=== PATIENT | male | born 1960 | race American Indian/Alaskan Native ===

== ENCOUNTER 2017-08-17 22:35 | Emergency (ER) | payer SELFPAY ==
--- NOTE | 2017-08-18 02:04 | XRay Report ---
FINAL REPORT EXAM: XR HAND 2V LT HISTORY: left hand pain TECHNIQUE: AP and lateral views of the left hand PRIORS: None. FINDINGS: There is no evidence for acute fracture or dislocation. No soft tissue swelling or radiopaque foreign bodies are seen. Bony mineralization is normal and joint spaces are maintained. IMPRESSION: No acute bony or soft tissue abnormality noted.
--- NOTE | 2017-08-18 02:05 | XRay Report ---
FINAL REPORT EXAM: XR KNEE 1-2V RT HISTORY: Chronic right knee pain TECHNIQUE: AP and lateral views of the right knee PRIORS: None. FINDINGS: No acute fracture or dislocation is seen. The soft tissues are unremarkable with no evidence for suprapatellar joint effusion. Joint spaces are maintained and bony mineralization is normal. IMPRESSION: Negative views of the right knee.
[2017-08-18] MEDS ORDERED: MOTRIN PO ONE (02:06)
--- NOTE | 2017-08-18 02:33 | Emergency Department Report ---
ED Lower Extremity HPI - General Chief Complaint: Extremity Injury, Upper Stated Complaint: RT KNEE PAIN Time Seen by Provider: 08/18/17 02:06 Source: patient Mode of arrival: Stretcher Limitations: Physical Limitation - History of Present Illness Initial Comments: This is a 56-year-old male nontoxic, well nourished in appearance, no acute signs of distress presents to the ED with c/o of acute on chronic knee pain 20 years. Patient denies any new trauma. Patient stated the knee has been "locking up" intermittently. Patient denies any joint swelling, joint redness, fever, chills, nausea, vomiting, headache, stiff neck, back pain, abdominal pain , chest pain or shortness of breath. Patient denies any allergies or significant past medical history. MD Complaint: knee injury -: year(s) Injury: Knee: Left Severity: mild Severity scale (0 -10): 3 Improves With: immobilization Worsens With: movement Associated Symptoms: ambulatory. denies: snap/pop sensation, swelling, numbness , tingling, unable to bear weight, able to partially bear weight - Related Data Previous Rx's Medication Instructions Recorded Last Taken Type Ibuprofen [Motrin] 600 mg PO Q8H PRN #30 tablet 08/18/17 Unknown Rx Allergies Allergy/AdvReac Type Severity Reaction Status Date / Time No Known Allergies Allergy Unverified 08/17/17 23:53 ED Review of Systems ROS: Stated complaint: RT KNEE PAIN Other details as noted in HPI Constitutional: denies: chills, fever Eyes: denies: eye pain, eye discharge, vision change ENT: denies: ear pain, throat pain Respiratory: denies: cough, shortness of breath, wheezing Cardiovascular: denies: chest pain, palpitations Endocrine: no symptoms reported Gastrointestinal: denies: abdominal pain, nausea, diarrhea Genitourinary: denies: urgency, dysuria Musculoskeletal: denies: back pain, joint swelling, arthralgia Skin: denies: rash, lesions Neurological: denies: headache, weakness, paresthesias Psychiatric: denies: anxiety, depression Hematological/Lymphatic: denies: easy bleeding, easy bruising ED Past Medical Hx - Past Medical History Hx Arthritis: Yes Additional medical history: Chronic Right Knee Pain - Social History Smoking Status: Current Every Day Smoker Substance Use Type: Alcohol - Medications Home Medications: Home Medications Medication Instructions Recorded Confirmed Last Taken Type Ibuprofen [Motrin] 600 mg PO Q8H PRN #30 tablet 08/18/17 Unknown Rx ED Physical Exam - General Limitations: Physical Limitation General appearance: alert, in no apparent distress - Head Head exam: Present: atraumatic, normocephalic - Eye Eye exam: Present: normal appearance Pupils: Present: normal accommodation - ENT ENT exam: Present: normal exam, mucous membranes moist - Neck Neck exam: Present: normal inspection, full ROM - Respiratory Respiratory exam: Present: normal lung sounds bilaterally. Absent: respiratory distress, wheezes, rales, rhonchi, stridor - Cardiovascular Cardiovascular Exam: Present: regular rate, normal rhythm, normal heart sounds. Absent: irregular rhythm, systolic murmur, diastolic murmur, rubs, gallop - GI/Abdominal GI/Abdominal exam: Present: soft, normal bowel sounds - Rectal Rectal exam: Present: deferred - Extremities Exam Extremities exam: Present: normal inspection, full ROM, normal capillary refill. Absent: tenderness, pedal edema, joint swelling, calf tenderness - Expanded Lower Extremity Exam Left Hip exam: Present: normal inspection, full ROM Upper Leg exam: Present: normal inspection, full ROM Knee exam: Present: normal inspection, full ROM, full knee extension. Absent: tenderness, swelling, abrasion, laceration, ecchymosis, deformity, crepidus, dislocation, erythema, effusion, pain w/ pronation/supination, posterior draw sign, pain/laxity with valgus, pain/laxity with varus Lower Leg exam: Present: normal inspection, full ROM. Absent: tenderness, swelling, abrasion, laceration, ecchymosis, deformity, crepidus, dislocation, erythema, palpable cord, Jose's sign Ankle exam: Present: normal inspection, full ROM Foot/Toe exam: Present: normal inspection, full ROM Neuro vascular tendon exam: Present: no vascular compromise. Absent: pulse deficit, abnormal cap refill, motor deficit, sensory deficit, tendon deficit, extremity cold to touch, pallor, abnormal 2-point discrimination, decreased fine /light touch, foot drop, peroneal nerve deficit, significant pain with passive ROM of distal joint Gait: Positive: observed and normal - Back Exam Back exam: Present: normal inspection, full ROM - Neurological Exam Neurological exam: Present: alert, oriented X3, normal gait - Psychiatric Psychiatric exam: Present: normal affect, normal mood - Skin Skin exam: Present: warm, dry, intact, normal color. Absent: rash ED Course Vital Signs 08/17/17 23:44 Temperature 97.6 F Pulse Rate 93 H Respiratory 18 Rate Blood Pressure 135/86 O2 Sat by Pulse 98 Oximetry - Reevaluation(s) Reevaluation #1: 08/18/17 02:31 Patient is speaking in full sentences with no signs of distress noted. ED Lower Extremity MDM - Medical Decision Making this is a 56-year-old male that presents with chronic knee pain. Patient was examined by me. X-ray obtained and dictated by the radiologist within normal limits. Patient received Motrin in the ED. Patient was referred to orthopedic doctor for possible MRI. At time of discharge, the patient does not seem toxic or ill in appearance. No acute signs of distress noted. Patient agrees to discharge treatment plan of care. No further questions noted by the patient. Critical care attestation.: If time is entered above; I have spent that time in minutes in the direct care of this critically ill patient, excluding procedure time. ED Disposition Clinical Impression: Chronic knee pain Qualifiers: Laterality: right Qualified Code(s): M25.561 - Pain in right knee; G89.29 - Other chronic pain Disposition: DC-01 TO HOME OR SELFCARE Is pt being admited?: No Does the pt Need Aspirin: No Condition: Stable Instructions: Knee Pain (ED) Additional Instructions: Follow-up with a orthopedic doctor in 3-5 days or if symptoms worsen and continue return to emergency room as soon as possible. Prescriptions: Ibuprofen [Motrin] 600 mg PO Q8H PRN #30 tablet PRN Reason: Pain Referrals: JINA EARL MD [Primary Care Provider] - 3-5 Days JOSE RAUL FELIZ MD [Staff Physician] - 3-5 Days [facility] [Outside] - 3-5 Days [facility] [Outside] - 3-5 Days
[2017-08-18 02:44] VITALS: BP 136/84
== END 2017-08-18 02:46 | disposition home or self-care (01) ==
LOC: ED 22:35
DX: M25.561 Pain in right knee (principal); M79.642 Pain in left hand; G89.29 Other chronic pain; F17.200 Nicotine dependence, unspecified, uncomplicated
CPT/HCPCS: 99283

== ENCOUNTER 2018-06-30 00:41 | Emergency (ER) | payer SELFPAY ==
[2018-06-30] MEDS ORDERED: PROVENTIL IH ONE (00:55)
[2018-06-30] MEDS ORDERED: ATROVENT IH ONE (00:55)
--- NOTE | 2018-06-30 00:55 | Emergency Department Report ---
ED General Adult HPI - General Chief complaint: Medical Clearance Stated complaint: CONGESTION Time Seen by Provider: 06/30/18 00:52 Source: patient, EMS (verbal report received from EMS.), RN notes reviewed Mode of arrival: Stretcher Limitations: Other (intoxication. The patient is a poor historian.) - History of Present Illness Initial comments: This is a 57-year-old gentleman who is brought to the hospital by EMS. As per verbal report from EMS, patient was at a gas station, and somebody called 911. Not certain why EMS services were activated. The patient endorses nasal congestion and cough. He denied alcohol consumption. He denied physical pain. He is asking to sleep and to be left alone. He denied headache, neck pain, chest pain, abdominal pain, homicidality, suicidality. -: Sudden Improves with: none Worsens with: none Associated Symptoms: cough, malaise - Related Data Previous Rx's Medication Instructions Recorded Last Taken Type Ibuprofen [Motrin] 600 mg PO Q8H PRN #30 tablet 08/18/17 Unknown Rx Albuterol Sulfate [Proair 90 mcg IH Q4HR PRN #2 aer.[email or web address] 06/30/18 Unknown Rx Respiclick] Fluticasone [Flonase] 1 spray NS QDAY #1 bottle 06/30/18 Unknown Rx Folic Acid [Folvite] 1 mg PO QDAY #30 tablet 06/30/18 Unknown Rx Oxymetazoline 0.05% [Afrin] 1 spray NS BID PRN #1 bottle 06/30/18 Unknown Rx RX: Multivitamin [Multiple 1 each PO QDAY #30 tablet 06/30/18 Unknown Rx Vitamins] Allergies Allergy/AdvReac Type Severity Reaction Status Date / Time No Known Allergies Allergy Unverified 08/17/17 23:53 ED Review of Systems ROS: Stated complaint: CONGESTION Other details as noted in HPI Comment: Unobtainable due to pts medical conditions Respiratory: cough, wheezing Cardiovascular: denies: chest pain Gastrointestinal: denies: abdominal pain Psychiatric: denies: homicidal thoughts, suicidal thoughts ED Past Medical Hx - Past Medical History Hx Arthritis: Yes Additional medical history: Chronic Right Knee Pain - Social History Smoking Status: Current Every Day Smoker Substance Use Type: Alcohol - Medications Home Medications: Home Medications Medication Instructions Recorded Confirmed Last Taken Type Ibuprofen [Motrin] 600 mg PO Q8H PRN #30 tablet 08/18/17 Unknown Rx Albuterol Sulfate [Proair 90 mcg IH Q4HR PRN #2 aer.[email or web address] 06/30/18 Unknown Rx Respiclick] Fluticasone [Flonase] 1 spray NS QDAY #1 bottle 06/30/18 Unknown Rx Folic Acid [Folvite] 1 mg PO QDAY #30 tablet 06/30/18 Unknown Rx Oxymetazoline 0.05% [Afrin] 1 spray NS BID PRN #1 bottle 06/30/18 Unknown Rx RX: Multivitamin [Multiple 1 each PO QDAY #30 tablet 06/30/18 Unknown Rx Vitamins] ED Physical Exam - General Limitations: Other (alcohol intoxication) General appearance: appears intoxicated - Head Head exam: Present: atraumatic, normocephalic - Eye Eye exam: Present: normal appearance, PERRL, EOMI - ENT ENT exam: Present: normal orophraynx, mucous membranes dry, normal external ear exam, other (patient has scant bleeding from the bilateral nostrils. No obvious arterial bleeding is noted.) - Neck Neck exam: Present: normal inspection, full ROM. Absent: tenderness, meningismus - Respiratory Respiratory exam: Present: wheezes. Absent: respiratory distress - Cardiovascular Cardiovascular Exam: Present: normal rhythm, tachycardia, normal heart sounds. Absent: systolic murmur, diastolic murmur, rubs, gallop - GI/Abdominal GI/Abdominal exam: Present: soft. Absent: distended, tenderness, guarding, rebound, rigid, pulsatile mass - Rectal Rectal exam: Present: deferred - Extremities Exam Extremities exam: Present: normal inspection, full ROM, other (2+ pulses noted in the bilateral upper, lower extremities. Compartments soft. No long bony tenderness. The pelvis is stable.). Absent: pedal edema, joint swelling, calf tenderness - Back Exam Back exam: Present: normal inspection, full ROM. Absent: tenderness, CVA tenderness (R), paraspinal tenderness, vertebral tenderness - Neurological Exam Neurological exam: Present: alert, other (Extraocular movements intact. Tongue midline. No facial droop. Facial sensation intact to light touch in the V1, V2, V3 distribution bilaterally. 5 and 5 strength in 4 extremities.. Sensation is intact to light touch in 4 extremities.). Absent: motor sensory deficit - Psychiatric Psychiatric exam: Present: normal affect, normal mood - Skin Skin exam: Present: warm, dry, intact, normal color. Absent: rash ED Course Vital Signs 06/30/18 06/30/18 06/30/18 01:19 01:40 02:00 Temperature 97.9 F Pulse Rate 107 H 111 H Pulse Rate [ 80 Right Lower Lobe] Respiratory 22 21 Rate Respiratory 18 Rate [Right Lower Lobe] Blood Pressure 120/85 133/79 Blood Pressure 120/85 [Left] O2 Sat by Pulse 96 93 Oximetry 06/30/18 06/30/18 06/30/18 04:00 05:00 06:00 Temperature Pulse Rate 110 H 129 H 114 H Pulse Rate [ Right Lower Lobe] Respiratory 25 H 22 22 Rate Respiratory Rate [Right Lower Lobe] Blood Pressure 135/78 135/78 137/75 Blood Pressure [Left] O2 Sat by Pulse 98 98 95 Oximetry 06/30/18 06/30/18 06/30/18 07:00 08:00 09:00 Temperature Pulse Rate 118 H Pulse Rate [ Right Lower Lobe] Respiratory 32 H Rate Respiratory Rate [Right Lower Lobe] Blood Pressure 143/75 129/72 129/79 Blood Pressure [Left] O2 Sat by Pulse 95 94 96 Oximetry - Reevaluation(s) Reevaluation #1: 06/30/18 05:34 Differential diagnosis, including but not limited to: Bronchitis, bronchiectasis, malnutrition, dehydration, resolving nasal bleeding, alcohol dependence, intracranial injury, cervical spine injury Assessment and plan: 57-year-old gentleman with some wheezing, also clinically intoxicated. Initial laboratory studies suggest hypoglycemia, hyponatremia, and alcohol intoxication. The patient is still intoxicated, his hypoglycemia is still persistent, and the patient has improved sodium. He will be given additional dextrose, he will be given additional D5 half- normal, he was given a banana bag, and we will await clinical sobriety. Multiple attempts were made to encourage the patient to eat. Thus far he is declining to eat. He is placed on repetitive Accu-Cheks, and 2 x 2 pledgets were inserted into the bilateral nostrils, with application of lidocaine with epinephrine, then application of the external tongue depressors, with good hemostasis. Once the patient s sober, he should be able to eat in the emergency room, and maintain an appropriate glucose level, and be discharged. Care will be transferred to the oncoming ER physician, Dr. Trinity Nicole, to reassess for clinical sobriety and glycemic monitoring. 07/02/18 20:28 Reevaluation #2: 06/30/18 05:46 Wheezing has resolved. Still somewhat tachycardic, likely secondary to albuterol. Resting comfortably, and in no acute distress. - Procedure Description Procedures done: Soaked 2 2 x 2 pledgets with lidocaine with epinephrine. Inserted 1 pledgets into each nostril. Then applied external tongue depressor device. The patient tolerated this well. ED Medical Decision Making - Lab Data Result diagrams: 06/30/18 01:33 06/30/18 04:28 Critical care attestation.: If time is entered above; I have spent that time in minutes in the direct care of this critically ill patient, excluding procedure time. ED Disposition Clinical Impression: Reactive airway disease, Nasal bleeding, Malnutrition, Alcohol intoxication Disposition: DC-01 TO HOME OR SELFCARE Is pt being admited?: No Does the pt Need Aspirin: No Condition: Stable Instructions: Acute Bronchitis (ED), Abuse of Alcohol (ED) Additional Instructions: Discontinue, avoid consumption of alcohol. Take the medications as needed/d irected. Follow up with the primary care doctor within the next month. Return to the emergency room right away with new, worsening or different symptoms. Prescriptions: Albuterol Sulfate [Proair Respiclick] 90 mcg IH Q4HR PRN #2 aer.[email or web address] PRN Reason: Wheezing Fluticasone [Flonase] 1 spray NS QDAY #1 bottle Folic Acid [Folvite] 1 mg PO QDAY #30 tablet RX: Multivitamin [Multiple Vitamins] 1 each PO QDAY #30 tablet Oxymetazoline 0.05% [Afrin] 1 spray NS BID PRN #1 bottle PRN Reason: Congestion Referrals: [facility] [Provider Group] - as needed
--- NOTE | 2018-06-30 01:19 | XRay Report ---
FINAL REPORT PROCEDURE: XR CHEST 1V AP TECHNIQUE: Chest radiograph anteroposterior view. CPT 27484 HISTORY: cough wheezing COMPARISON: No prior studies are available for comparison. FINDINGS: Heart: Normal. Mediastinum/Vessels: Normal. Lungs/Pleural space: Normal. Bony thorax: No acute osseous abnormality. Life support devices: None. IMPRESSION: No acute cardiopulmonary abnormality.
[2018-06-30] MEDS ORDERED: FOLVITE 1 MG, INFUVITE 10 ML in NACL 0.9% 1000 ML 1,000 ML IV ONE (01:20)
[2018-06-30 01:49] LABS: Hemoglobin 14.1 gm/dl (11.8-15.2); Mean Corpuscular HGB Conc 34 % (32-34); Mean Corpuscular Volume 84 fl (84-94); Red Blood Count 4.89 M/mm3 (3.65-5.03); Red Cell Distribution Width 18.6 % (13.2-15.2)
[2018-06-30 01:54] LABS: Platelet Count 128 K/mm3 (140-440)
[2018-06-30 02:13] LABS: BUN/Creatinine Ratio 7; Blood Urea Nitrogen 5 mg/dL (9-20); Calcium 8.6 mg/dL (8.4-10.2); Hemolysis Index 4
[2018-06-30] MEDS ORDERED: NACL 0.9% 1000 ML 1,000 ML IV ONE ×2 (02:46→05:41)
[2018-06-30] MEDS ORDERED: D50W (25GM) Syringe IV ONE ×3 (02:47→05:35)
--- NOTE | 2018-06-30 03:24 | Cat Scan Report ---
FINAL REPORT PROCEDURE: CT HEAD/BRAIN WO CON TECHNIQUE: Computerized tomography of the head was performed without contrast material. HISTORY: etoh ? trauma COMPARISON: No prior studies are available for comparison. FINDINGS: Skull and scalp: Normal. Paranasal sinuses: Normal. Ventricles and subarachnoid spaces: Normal. Cerebrum: No evidence of hemorrhage, acute infarction or mass. Slight atrophy and slight periventricu lar deep white matter change.. Cerebellum and brainstem: No evidence of hemorrhage, acute infarction or mass. Vasculature: Normal. Comments: None. IMPRESSION: There is no evidence of an acute intracranial process. There is atrophy and slight periventricular de ep white matter change
--- NOTE | 2018-06-30 03:25 | Cat Scan Report ---
FINAL REPORT PROCEDURE: CT CERVICAL SPINE WO CON TECHNIQUE: Computerized tomography of the cervical spine was performed from the skull base to T1 wit hout contrast material. HISTORY: etoh ? trauma COMPARISON: No prior studies are available for comparison. FINDINGS: C1-2: No significant abnormality. C2-3: No significant abnormality. C3-4: No significant abnormality. C4-5: No significant abnormality. C5-6: No significant abnormality. C6-7: No significant abnormality. C7-T1: No significant abnormality. Other: No evidence of an acute fracture. The alignment is normal. The spinal canal is adequate at all levels.. IMPRESSION: There is no evidence of acute fracture or dislocation..
[2018-06-30 04:58] LABS: BUN/Creatinine Ratio 6; Blood Urea Nitrogen 4 mg/dL (9-20); Hemolysis Index 66
[2018-06-30] MEDS ORDERED: D50W (25GM) Vial IV ONE (05:09)
[2018-06-30] MEDS ORDERED: XYLOCAINE 2%/ EPI 1:200,000 INFILTRATI ONE (05:27)
[2018-06-30] MEDS ORDERED: XYLOCAINE 2%/EPI 1:100,000 INFILTRATI ONE (05:31)
[2018-06-30] MEDS ORDERED: D5/0.45NS 1,000 ML IV ONE (06:00)
[2018-06-30 09:28] VITALS: BP 129/79
[2018-06-30] MEDS ORDERED: ZOFRAN ONE (10:17)
[2018-06-30] MEDS ORDERED: ZOFRAN IV ONE (10:18)
== END 2018-06-30 12:02 | disposition home or self-care (01) ==
LOC: ED 00:41
DX: J45.909 Unspecified asthma, uncomplicated (principal); R04.0 Epistaxis; F10.120 Alcohol abuse with intoxication, uncomplicated; M25.561 Pain in right knee; G89.29 Other chronic pain; F17.200 Nicotine dependence, unspecified, uncomplicated
CPT/HCPCS: 36415; 70450; 71045; 72125; 80048; 82550; 82962; 83735; 85027; 94640; 96365; 96366; 96375; 96376; 99285; G0480; J2405; J3411; J7030; 80320

== ENCOUNTER 2018-10-20 18:16 | Inpatient (IN) | payer OTHER ==
[2018-10-20] MEDS ORDERED: ATIVAN IV ONE (18:41)
[2018-10-20] MEDS ORDERED: D50W (25GM) Syringe IV ONE ×2 (18:42→20:00)
[2018-10-20] MEDS ORDERED: D50W (25GM) Vial IV ONE (18:43)
--- NOTE | 2018-10-20 19:00 | Emergency Department Report ---
ED Alcohol HPI - General Chief Complaint: Weakness Stated Complaint: GENERAL WEAKNESS Time Seen by Provider: 10/20/18 18:35 Source: patient Mode of arrival: Ambulatory Limitations: No Limitations - History of Present Illness Initial Comments: 57-year-old male with alcohol abuse and arthritis presents to the hospital with generalized shaking. Patient states his mother called EMS due to his uncontrollable shakes. Patient states he shakes or the time. He drinks alcohol almost daily and did have some beer earlier today. He also has chronic intermittent nausea vomiting and epigastric pain. He denies emesis, melena, hematochezia, or fever. He has chronic intermittent diarrhea. He denies any pain currently. Patient denies history of seizures. - Related Data Previous Rx's Medication Instructions Recorded Last Taken Type Ibuprofen [Motrin] 600 mg PO Q8H PRN #30 tablet 08/18/17 Unknown Rx Albuterol Sulfate [Proair 90 mcg IH Q4HR PRN #2 aer.pow.ba 06/30/18 Unknown Rx Respiclick] Fluticasone [Flonase] 1 spray NS QDAY #1 bottle 06/30/18 Unknown Rx Folic Acid [Folvite] 1 mg PO QDAY #30 tablet 06/30/18 Unknown Rx Multivitamin [Multiple Vitamins] 1 each PO QDAY #30 tablet 06/30/18 Unknown Rx Oxymetazoline 0.05% [Afrin] 1 spray NS BID PRN #1 bottle 06/30/18 Unknown Rx Allergies Allergy/AdvReac Type Severity Reaction Status Date / Time No Known Allergies Allergy Verified 10/20/18 18:26 ED Review of Systems ROS: Stated complaint: GENERAL WEAKNESS Other details as noted in HPI Comment: All other systems reviewed and negative ED Past Medical Hx - Past Medical History Previous Medical History?: Yes Hx Arthritis: Yes Additional medical history: Chronic Right Knee Pain - Surgical History Past Surgical History?: No - Social History Smoking Status: Current Every Day Smoker Substance Use Type: Alcohol - Medications Home Medications: Home Medications Medication Instructions Recorded Confirmed Last Taken Type Ibuprofen [Motrin] 600 mg PO Q8H PRN #30 tablet 08/18/17 Unknown Rx Albuterol Sulfate [Proair 90 mcg IH Q4HR PRN #2 aer.pow.ba 06/30/18 Unknown Rx Respiclick] Fluticasone [Flonase] 1 spray NS QDAY #1 bottle 06/30/18 Unknown Rx Folic Acid [Folvite] 1 mg PO QDAY #30 tablet 06/30/18 Unknown Rx Multivitamin [Multiple Vitamins] 1 each PO QDAY #30 tablet 06/30/18 Unknown Rx Oxymetazoline 0.05% [Afrin] 1 spray NS BID PRN #1 bottle 06/30/18 Unknown Rx ED Physical Exam - General Limitations: No Limitations - Other Other exam information: General: No limitations, patient is alert in no acute distress Head exam: Atraumatic Eyes exam: Normal appearance, anicteric sclerae ENT: Moist mucous membrane Neck exam: Normal inspection, full range of motion, no meningismus nontender Respiratory exam: Clear to auscultation bilateral, no wheezes, rales, crackles Cardiovascular: Mild tachycardia regular rhythm Abdomen: Soft, nondistended, and mild epigastric tenderness, with normal bowel sounds, no rebound, or guarding Extremity: Full range of motion normal inspection no deformity Back: Normal Inspection, full range of motion, no tenderness Neurologic: Alert, oriented x3, cranial nerves intact, no motor or sensory deficit. Resting tremor noted Psychiatric: normal affect, normal mood Skin: Warm, dry, intact ED Course Vital Signs 10/20/18 10/20/18 10/20/18 19:39 20:21 21:25 Temperature 99.2 F Pulse Rate 105 H 100 H 110 H Respiratory 17 16 15 Rate Blood Pressure 145/94 140/84 136/84 [Left] O2 Sat by Pulse 100 99 100 Oximetry ED Medical Decision Making - Lab Data Result diagrams: 10/20/18 18:45 10/20/18 18:45 Lab Results 10/20/18 10/20/18 10/20/18 Range/Units 18:38 18:40 18:45 WBC 6.6 (4.5-11.0) K/mm3 RBC 5.11 H (3.65-5.03) M/mm3 Hgb 15.3 H (11.8-15.2) gm/dl Hct 43.6 (35.5-45.6) % MCV 85 (84-94) fl MCH 30 (28-32) pg MCHC 35 H (32-34) % RDW 18.7 H (13.2-15.2) % Plt Count 141 (140-440) K/mm3 Add Manual Diff Complete Total Counted 100 Seg Neuts % (Manual) 83.0 H (40.0-70.0) % Band Neutrophils % 0 % Lymphocytes % (Manual) 11.0 L (13.4-35.0) % Reactive Lymphs % (Man) 0 % Monocytes % (Manual) 4.0 (0.0-7.3) % Eosinophils % (Manual) 0 (0.0-4.3) % Basophils % (Manual) 2.0 H (0.0-1.8) % Metamyelocytes % 0 % Myelocytes % 0 % Promyelocytes % 0 % Blast Cells % 0 % Nucleated RBC % Not Reportable Seg Neutrophils # Man 5.5 (1.8-7.7) K/mm3 Band Neutrophils # 0.0 K/mm3 Lymphocytes # (Manual) 0.7 L (1.2-5.4) K/mm3 Abs React Lymphs (Man) 0.0 K/mm3 Monocytes # (Manual) 0.3 (0.0-0.8) K/mm3 Eosinophils # (Manual) 0.0 (0.0-0.4) K/mm3 Basophils # (Manual) 0.1 (0.0-0.1) K/mm3 Metamyelocytes # 0.0 K/mm3 Myelocytes # 0.0 K/mm3 Promyelocytes # 0.0 K/mm3 Blast Cells # 0.0 K/mm3 WBC Morphology Not Reportable Hypersegmented Neuts Not Reportable Hyposegmented Neuts Not Reportable Hypogranular Neuts Not Reportable Smudge Cells Not Reportable Toxic Granulation Not Reportable Toxic Vacuolation Not Reportable Dohle Bodies Not Reportable Pelger-Huet Anomaly Not Reportable Desmond Rods Not Reportable Platelet Estimate Consistent w auto Clumped Platelets Not Reportable Plt Clumps, EDTA Not Reportable Large Platelets Few Giant Platelets Few Platelet Satelliting Not Reportable Plt Morphology Comment Not Reportable RBC Morphology Not Reportable Dimorphic RBCs Not Reportable Polychromasia Not Reportable Hypochromasia Not Reportable Poikilocytosis Few Anisocytosis 1+ Microcytosis Not Reportable Macrocytosis Not Reportable Spherocytes Not Reportable Pappenheimer Bodies Not Reportable Sickle Cells Not Reportable Target Cells 2+ Tear Drop Cells Not Reportable Ovalocytes Not Reportable Helmet Cells Not Reportable [place] Bodies Not Reportable [place] Rings Not Reportable [place] Cells Not Reportable Bite Cells Not Reportable Crenated Cell Not Reportable Elliptocytes Not Reportable Acanthocytes (Spur) Not Reportable Rouleaux Not Reportable Hemoglobin C Crystals Not Reportable Schistocytes Not Reportable Malaria parasites Not Reportable Vinny Bodies Not Reportable Hem Pathologist Commnt No Sodium (137-145) mmol/L Potassium (3.6-5.0) mmol/L Chloride (98-107) mmol/L Carbon Dioxide (22-30) mmol/L Anion Gap mmol/L BUN (9-20) mg/dL Creatinine (0.8-1.5) mg/dL Estimated GFR ml/min BUN/Creatinine Ratio % Glucose (75-100) mg/dL POC Glucose 60 L (70-105) Calcium (8.4-10.2) mg/dL Magnesium (1.7-2.3) mg/dL Total Bilirubin (0.1-1.2) mg/dL AST (5-40) units/L ALT (7-56) units/L Alkaline Phosphatase (35-129) units/L Total Protein (6.3-8.2) g/dL Albumin (3.9-5) g/dL Albumin/Globulin Ratio % Lipase 20 (13-60) units/L Urine Color (Yellow) Urine Turbidity (Clear) Urine pH (5.0-7.0) Ur Specific [place] (1.003-1.030) Urine Protein (Negative) mg/dL Urine Glucose (UA) (Negative) mg/dL Urine Ketones (Negative) mg/dL Urine Blood (Negative) Urine Nitrite (Negative) Urine Bilirubin (Negative) Urine Urobilinogen (<2.0) mg/dL Ur Leukocyte Esterase (Negative) Urine WBC (Auto) (0.0-6.0) /HPF Urine RBC (Auto) (0.0-6.0) /HPF U Epithel Cells (Auto) (0-13.0) /HPF Urine Mucus /HPF Urine Opiates Screen Urine Methadone Screen Ur Barbiturates Screen Ur Phencyclidine Scrn Ur Amphetamines Screen U Benzodiazepines Scrn Urine Cocaine Screen U Marijuana (THC) Screen Drugs of Abuse Note Plasma/Serum Alcohol (0-0.07) % 10/20/18 10/20/18 10/20/18 Range/Units 18:45 19:06 19:20 WBC (4.5-11.0) K/mm3 RBC (3.65-5.03) M/mm3 Hgb (11.8-15.2) gm/dl Hct (35.5-45.6) % MCV (84-94) fl MCH (28-32) pg MCHC (32-34) % RDW (13.2-15.2) % Plt Count (140-440) K/mm3 Add Manual Diff Total Counted Seg Neuts % (Manual) (40.0-70.0) % Band Neutrophils % % Lymphocytes % (Manual) (13.4-35.0) % Reactive Lymphs % (Man) % Monocytes % (Manual) (0.0-7.3) % Eosinophils % (Manual) (0.0-4.3) % Basophils % (Manual) (0.0-1.8) % Metamyelocytes % % Myelocytes % % Promyelocytes % % Blast Cells % % Nucleated RBC % Seg Neutrophils # Man (1.8-7.7) K/mm3 Band Neutrophils # K/mm3 Lymphocytes # (Manual) (1.2-5.4) K/mm3 Abs React Lymphs (Man) K/mm3 Monocytes # (Manual) (0.0-0.8) K/mm3 Eosinophils # (Manual) (0.0-0.4) K/mm3 Basophils # (Manual) (0.0-0.1) K/mm3 Metamyelocytes # K/mm3 Myelocytes # K/mm3 Promyelocytes # K/mm3 Blast Cells # K/mm3 WBC Morphology Hypersegmented Neuts Hyposegmented Neuts Hypogranular Neuts Smudge Cells Toxic Granulation Toxic Vacuolation Dohle Bodies Pelger-Huet Anomaly [place] Rods Platelet Estimate Clumped Platelets Plt Clumps, EDTA Large Platelets Giant Platelets Platelet Satelliting Plt Morphology Comment RBC Morphology Dimorphic RBCs Polychromasia Hypochromasia Poikilocytosis Anisocytosis Microcytosis Macrocytosis Spherocytes Pappenheimer Bodies Sickle Cells Target Cells Tear Drop Cells Ovalocytes Helmet Cells [place] Bodies [place] Rings [place] Cells Bite Cells Crenated Cell Elliptocytes Acanthocytes (Spur) Rouleaux Hemoglobin C Crystals Schistocytes Malaria parasites Vinny Bodies Hem Pathologist Commnt Sodium 134 L (137-145) mmol/L Potassium 5.0 (3.6-5.0) mmol/L Chloride 96.7 L (98-107) mmol/L Carbon Dioxide 22 (22-30) mmol/L Anion Gap 20 mmol/L BUN 5 L (9-20) mg/dL Creatinine 0.6 L (0.8-1.5) mg/dL Estimated GFR > 60 ml/min BUN/Creatinine Ratio 8 % Glucose 74 L (75-100) mg/dL POC Glucose 148 H (70-105) Calcium 8.8 (8.4-10.2) mg/dL Magnesium 1.90 (1.7-2.3) mg/dL Total Bilirubin 0.60 (0.1-1.2) mg/dL AST 167 H (5-40) units/L ALT 83 H (7-56) units/L Alkaline Phosphatase 197 H (35-129) units/L Total Protein 7.6 (6.3-8.2) g/dL Albumin 3.5 L (3.9-5) g/dL Albumin/Globulin Ratio 0.9 % Lipase (13-60) units/L Urine Color (Yellow) Urine Turbidity (Clear) Urine pH (5.0-7.0) Ur Specific [place] (1.003-1.030) Urine Protein (Negative) mg/dL Urine Glucose (UA) (Negative) mg/dL Urine Ketones (Negative) mg/dL Urine Blood (Negative) Urine Nitrite (Negative) Urine Bilirubin (Negative) Urine Urobilinogen (<2.0) mg/dL Ur Leukocyte Esterase (Negative) Urine WBC (Auto) (0.0-6.0) /HPF Urine RBC (Auto) (0.0-6.0) /HPF U Epithel Cells (Auto) (0-13.0) /HPF Urine Mucus /HPF Urine Opiates Screen Urine Methadone Screen Ur Barbiturates Screen Ur Phencyclidine Scrn Ur Amphetamines Screen U Benzodiazepines Scrn Urine Cocaine Screen U Marijuana (THC) Screen Drugs of Abuse Note Plasma/Serum Alcohol 0.15 H (0-0.07) % 10/20/18 10/20/18 Range/Units 19:39 19:39 WBC (4.5-11.0) K/mm3 RBC (3.65-5.03) M/mm3 Hgb (11.8-15.2) gm/dl Hct (35.5-45.6) % MCV (84-94) fl MCH (28-32) pg MCHC (32-34) % RDW (13.2-15.2) % Plt Count (140-440) K/mm3 Add Manual Diff Total Counted Seg Neuts % (Manual) (40.0-70.0) % Band Neutrophils % % Lymphocytes % (Manual) (13.4-35.0) % Reactive Lymphs % (Man) % Monocytes % (Manual) (0.0-7.3) % Eosinophils % (Manual) (0.0-4.3) % Basophils % (Manual) (0.0-1.8) % Metamyelocytes % % Myelocytes % % Promyelocytes % % Blast Cells % % Nucleated RBC % Seg Neutrophils # Man (1.8-7.7) K/mm3 Band Neutrophils # K/mm3 Lymphocytes # (Manual) (1.2-5.4) K/mm3 Abs React Lymphs (Man) K/mm3 Monocytes # (Manual) (0.0-0.8) K/mm3 Eosinophils # (Manual) (0.0-0.4) K/mm3 Basophils # (Manual) (0.0-0.1) K/mm3 Metamyelocytes # K/mm3 Myelocytes # K/mm3 Promyelocytes # K/mm3 Blast Cells # K/mm3 WBC Morphology Hypersegmented Neuts Hyposegmented Neuts Hypogranular Neuts Smudge Cells Toxic Granulation Toxic Vacuolation Dohle Bodies Pelger-Huet Anomaly [place] Rods Platelet Estimate Clumped Platelets Plt Clumps, EDTA Large Platelets Giant Platelets Platelet Satelliting Plt Morphology Comment RBC Morphology Dimorphic RBCs Polychromasia Hypochromasia Poikilocytosis Anisocytosis Microcytosis Macrocytosis Spherocytes Pappenheimer Bodies Sickle Cells Target Cells Tear Drop Cells Ovalocytes Helmet Cells [place] Bodies [place] Rings [place] Cells Bite Cells Crenated Cell Elliptocytes Acanthocytes (Spur) Rouleaux Hemoglobin C Crystals Schistocytes Malaria parasites Vinny Bodies Hem Pathologist Commnt Sodium (137-145) mmol/L Potassium (3.6-5.0) mmol/L Chloride (98-107) mmol/L Carbon Dioxide (22-30) mmol/L Anion Gap mmol/L BUN (9-20) mg/dL Creatinine (0.8-1.5) mg/dL Estimated GFR ml/min BUN/Creatinine Ratio % Glucose (75-100) mg/dL POC Glucose (70-105) Calcium (8.4-10.2) mg/dL Magnesium (1.7-2.3) mg/dL Total Bilirubin (0.1-1.2) mg/dL AST (5-40) units/L ALT (7-56) units/L Alkaline Phosphatase (35-129) units/L Total Protein (6.3-8.2) g/dL Albumin (3.9-5) g/dL Albumin/Globulin Ratio % Lipase (13-60) units/L Urine Color Yellow (Yellow) Urine Turbidity Clear (Clear) Urine pH 5.0 (5.0-7.0) Ur Specific [place] 1.015 (1.003-1.030) Urine Protein <15 mg/dl (Negative) mg/dL Urine Glucose (UA) 150 (Negative) mg/dL Urine Ketones Tr (Negative) mg/dL Urine Blood Neg (Negative) Urine Nitrite Neg (Negative) Urine Bilirubin Neg (Negative) Urine Urobilinogen 2.0 (<2.0) mg/dL Ur Leukocyte Esterase Neg (Negative) Urine WBC (Auto) 1.0 (0.0-6.0) /HPF Urine RBC (Auto) 1.0 (0.0-6.0) /HPF U Epithel Cells (Auto) < 1.0 (0-13.0) /HPF Urine Mucus Few /HPF Urine Opiates Screen Presumptive negative Urine Methadone Screen Presumptive negative Ur Barbiturates Screen Presumptive negative Ur Phencyclidine Scrn Presumptive negative Ur Amphetamines Screen Presumptive negative U Benzodiazepines Scrn Presumptive negative Urine Cocaine Screen Presumptive negative U Marijuana (THC) Screen Presumptive negative Drugs of Abuse Note Disclamer Plasma/Serum Alcohol (0-0.07) % - Medical Decision Making hr increasing in ed despite ativan worsing withdrawal sx hyperGlycemia treated with 1 amp of D50 and food Banana bag given Hospitalist informed for admission [place] protocol initiated. - Differential Diagnosis alcohol withdrawal, substance abuse, Parkinson's Critical Care Time: No Critical care attestation.: If time is entered above; I have spent that time in minutes in the direct care of this critically ill patient, excluding procedure time. ED Disposition Clinical Impression: Alcohol abuse, Tremor, Alcohol dependence, Hypoglycemia Disposition: DC-09 OP ADMIT IP TO THIS HOSP Is pt being admited?: Yes Condition: Stable Time of Disposition: 23:21 (Dr Galicia/hosp)
[2018-10-20 19:11] LABS: Hematocrit 43.6 % (35.5-45.6); Hemoglobin 15.3 gm/dl (11.8-15.2); Mean Corpuscular HGB Conc 35 % (32-34); Mean Corpuscular Volume 85 fl (84-94); Red Blood Count 5.11 M/mm3 (3.65-5.03); Red Cell Distribution Width 18.7 % (13.2-15.2)
[2018-10-20 19:21] LABS: Platelet Count 141 K/mm3 (140-440)
[2018-10-20 19:25] LABS: Alanine Aminotransferase 83 units/L (7-56); Albumin 3.5 g/dL (3.9-5); BUN/Creatinine Ratio 8; Blood Urea Nitrogen 5 mg/dL (9-20); Calcium 8.8 mg/dL (8.4-10.2); Hemolysis Index 43
[2018-10-20] MEDS ORDERED: VITAMIN B-1 100 MG, FOLVITE 1 MG, INFUVITE 10 ML in NACL 0.9% 1000 ML 1,000 ML IV ONE (19:37)
[2018-10-20 20:13] LABS: Amphetamine Screen,Urine PRESUMPTIVE NEGATIVE; Benzodiazepines Screen,Urine PRESUMPTIVE NEGATIVE; Cannabinoid Screen,Urine PRESUMPTIVE NEGATIVE; Cocaine Screen,Urine PRESUMPTIVE NEGATIVE; Methadone Screen,Urine PRESUMPTIVE NEGATIVE; Opiate Screen,Urine PRESUMPTIVE NEGATIVE
[2018-10-20 20:19] LABS: Bilirubin,Urine NEG (Negative); Blood,Urine NEG (Negative); Color,Urine Yellow (Yellow); Mucus,Urine FEW /HPF; Protein,Urine <15 mg/dL mg/dL (Negative)
[2018-10-20 20:24] LABS: Eosinophils % (Manual) 0 % (0.0-4.3); Total Cells Counted 100
[2018-10-20 20:25] LABS: Anisocytosis 1+; Giant Platelets Few; Poikilocytosis Few; Target Cells 2+
[2018-10-20 20:26] LABS: Large Platelets Few; Platelet Estimate Consistent w Auto
[2018-10-20] MEDS ORDERED: ATIVAN IV PRN (23:11)
[2018-10-20] MEDS: ATIVAN IV PRN (23:19)
[2018-10-21] MEDS ORDERED: AMBIEN PO PRN (00:30)
[2018-10-21] MEDS ORDERED: ZOFRAN IV PRN (00:30)
[2018-10-21] MEDS ORDERED: SODIUM CHLORIDE FLUSH SYRINGE 10 ML IV PRN (00:30)
[2018-10-21] MEDS ORDERED: MORPHINE IV PRN (00:30)
[2018-10-21] MEDS ORDERED: TYLENOL PO PRN (00:30)
--- NOTE | 2018-10-21 00:51 | History and Physical Report ---
History of Present Illness Date of examination: 10/21/18 Chief complaint: " I was shaking" History of present illness: Patient is a 57-year-old -[place] male with history of alcohol abuse who presented to the ED on account of agitation. Patient stated that he usually drinks at least 2 or more bottles of 24 ounces of beer daily but today he drank half a bottle of beer. He had associated lower abdominal pain, nausea with vomiting 1 episode, headaches, dry cough and left-sided chest pain. He denies palpitation, diaphoresis, fever, chills, leg swelling, orthopnea or PND. Past History Past Medical History: arthritis, other (alcohol abuse) Past Surgical History: Other (right hand surgery) Social history: smoking (patient has 40 years history of cigarette smoking. He currently smokes one pack of cigarette per day), alcohol abuse (of 40 years duration. ), other (he admits to occasional marijuana use but denies other illicit drug use) Family history: other (no known family history of hypertension, diabetes or heart disease) Medications and Allergies Allergies Allergy/AdvReac Type Severity Reaction Status Date / Time No Known Allergies Allergy Verified 10/20/18 18:26 Home Medications Medication Instructions Recorded Confirmed Last Taken Type Ibuprofen [Motrin] 600 mg PO Q8H PRN #30 tablet 08/18/17 Unknown Rx Albuterol Sulfate [Proair 90 mcg IH Q4HR PRN #2 aer.pow.ba 06/30/18 Unknown Rx Respiclick] Fluticasone [Flonase] 1 spray NS QDAY #1 bottle 06/30/18 Unknown Rx Folic Acid [Folvite] 1 mg PO QDAY #30 tablet 06/30/18 Unknown Rx Multivitamin [Multiple Vitamins] 1 each PO QDAY #30 tablet 06/30/18 Unknown Rx Oxymetazoline 0.05% [Afrin] 1 spray NS BID PRN #1 bottle 06/30/18 Unknown Rx Active Meds: Active Medications Acetaminophen (Tylenol) 650 mg PO Q4H PRN PRN Reason: Pain MILD(1-3)/Fever >100.5/BOUCHER Enoxaparin Sodium (Lovenox) 40 mg SUB-Q QDAY DEVIN Famotidine (Pepcid) 10 mg PO BID DEVIN Dextrose/Sodium Chloride (D5ns) 1,000 mls @ 100 mls/hr IV DIRECT DEVIN Folic Acid 1 mg/ Multivitamins /Minerals 10 ml/ Thiamine HCl 100 mg/ Sodium Chloride 1,000 mls @ 125 mls/hr IV .BY DURATION DEVIN Stop: 10/22/18 23:59 Sodium Chloride (Nacl 0.9% 1000 Ml) 1,000 mls @ 125 mls/hr IV .BY DURATION DEVIN Stop: 10/22/18 23:59 Lorazepam (Ativan) 2 mg IV Q1HR PRN PRN Reason: CIWA-Ar 8-15 Last Admin: 10/20/18 23:19 Dose: 2 mg Documented by: Lorazepam (Ativan) 4 mg IV Q1HR PRN PRN Reason: CIWA-Ar 16-25 Morphine Sulfate (Morphine) 2 mg IV Q4H PRN PRN Reason: Pain, Moderate (4-6) Ondansetron HCl (Zofran) 4 mg IV Q8H PRN PRN Reason: Nausea And Vomiting Sodium Chloride (Sodium Chloride Flush Syringe 10 Ml) 10 ml IV BID DEVIN Sodium Chloride (Sodium Chloride Flush Syringe 10 Ml) 10 ml IV PRN PRN PRN Reason: LINE FLUSH Zolpidem Tartrate (Ambien) 5 mg PO QHS PRN PRN Reason: Insomnia Review of Systems All systems: negative (Except as documented in the HPI, 14 point system reviewed were negative) Exam - Constitutional Vitals: Temp Pulse Resp BP Pulse Ox 99.2 F 94 H 20 127/62 97 10/20/18 19:39 10/21/18 00:40 10/21/18 00:40 10/21/18 00:40 10/21/18 00:40 General appearance: Present: no acute distress, disheveled - EENT Eyes: Present: PERRL, EOM intact ENT: hearing intact, other (whitish exudate on the tongue) - Neck Neck: Present: supple, normal ROM - Respiratory Respiratory effort: normal Respiratory: bilateral: CTA - Cardiovascular Rhythm: regular Heart Sounds: Present: S1 & S2 - Extremities Extremities: No edema Peripheral Pulses: within normal limits - Abdominal General gastrointestinal: Present: soft, tender (mild and generalized), rigid Male genitourinary: Present: deferred - Integumentary Integumentary: Present: clear, warm, dry - Musculoskeletal Musculoskeletal: strength equal bilaterally - Psychiatric Psychiatric: cooperative, agitated - Neurologic Neurologic: CNII-XII intact Results - Labs CBC & Chem 7: 10/20/18 18:45 10/20/18 18:45 Labs: Laboratory Last Values WBC 6.6 K/mm3 (4.5-11.0) 10/20/18 18:45 RBC 5.11 M/mm3 (3.65-5.03) H 10/20/18 18:45 Hgb 15.3 gm/dl (11.8-15.2) H 10/20/18 18:45 Hct 43.6 % (35.5-45.6) 10/20/18 18:45 MCV 85 fl (84-94) 10/20/18 18:45 MCH 30 pg (28-32) 10/20/18 18:45 MCHC 35 % (32-34) H 10/20/18 18:45 RDW 18.7 % (13.2-15.2) H 10/20/18 18:45 Plt Count 141 K/mm3 (140-440) 10/20/18 18:45 Add Manual Diff Complete 10/20/18 18:45 Total Counted 100 10/20/18 18:45 Seg Neuts % (Manual) 83.0 % (40.0-70.0) H 10/20/18 18:45 0 % 10/20/18 18:45 11.0 % (13.4-35.0) L 10/20/18 18:45 Reactive Lymphs % (Man) 0 % 10/20/18 18:45 4.0 % (0.0-7.3) 10/20/18 18:45 0 % (0.0-4.3) 10/20/18 18:45 2.0 % (0.0-1.8) H 10/20/18 18:45 0 % 10/20/18 18:45 0 % 10/20/18 18:45 0 % 10/20/18 18:45 0 % 10/20/18 18:45 Nucleated RBC % Not Reportable 10/20/18 18:45 Seg Neutrophils # Man 5.5 K/mm3 (1.8-7.7) 10/20/18 18:45 Band Neutrophils # 0.0 K/mm3 10/20/18 18:45 0.7 K/mm3 (1.2-5.4) L 10/20/18 18:45 Abs React Lymphs (Man) 0.0 K/mm3 10/20/18 18:45 0.3 K/mm3 (0.0-0.8) 10/20/18 18:45 0.0 K/mm3 (0.0-0.4) 10/20/18 18:45 0.1 K/mm3 (0.0-0.1) 10/20/18 18:45 0.0 K/mm3 10/20/18 18:45 0.0 K/mm3 10/20/18 18:45 0.0 K/mm3 10/20/18 18:45 Blast Cells # 0.0 K/mm3 10/20/18 18:45 WBC Morphology Not Reportable 10/20/18 18:45 Hypersegmented Neuts Not Reportable 10/20/18 18:45 Hyposegmented Neuts Not Reportable 10/20/18 18:45 Hypogranular Neuts Not Reportable 10/20/18 18:45 Not Reportable 10/20/18 18:45 Not Reportable 10/20/18 18:45 Not Reportable 10/20/18 18:45 Not Reportable 10/20/18 18:45 Not Reportable 10/20/18 18:45 Not Reportable 10/20/18 18:45 Consistent w auto 10/20/18 18:45 Not Reportable 10/20/18 18:45 Plt Clumps, EDTA Not Reportable 10/20/18 18:45 Few 10/20/18 18:45 Few 10/20/18 18:45 Not Reportable 10/20/18 18:45 Plt Morphology Comment Not Reportable 10/20/18 18:45 RBC Morphology Not Reportable 10/20/18 18:45 Dimorphic RBCs Not Reportable 10/20/18 18:45 Not Reportable 10/20/18 18:45 Not Reportable 10/20/18 18:45 Few 10/20/18 18:45 1+ 10/20/18 18:45 Not Reportable 10/20/18 18:45 Not Reportable 10/20/18 18:45 Not Reportable 10/20/18 18:45 Not Reportable 10/20/18 18:45 Not Reportable 10/20/18 18:45 2+ 10/20/18 18:45 Not Reportable 10/20/18 18:45 Not Reportable 10/20/18 18:45 Not Reportable 10/20/18 18:45 Not Reportable 10/20/18 18:45 Not Reportable 10/20/18 18:45 Not Reportable 10/20/18 18:45 Not Reportable 10/20/18 18:45 Not Reportable 10/20/18 18:45 Not Reportable 10/20/18 18:45 Acanthocytes (Spur) Not Reportable 10/20/18 18:45 Rouleaux Not Reportable 10/20/18 18:45 Not Reportable 10/20/18 18:45 Not Reportable 10/20/18 18:45 Not Reportable 10/20/18 18:45 Not Reportable 10/20/18 18:45 Hem Pathologist Commnt No 10/20/18 18:45 Sodium 134 mmol/L (137-145) L 10/20/18 18:45 Potassium 5.0 mmol/L (3.6-5.0) 10/20/18 18:45 Chloride 96.7 mmol/L (98-107) L 10/20/18 18:45 Carbon Dioxide 22 mmol/L (22-30) 10/20/18 18:45 20 mmol/L 10/20/18 18:45 BUN 5 mg/dL (9-20) L 10/20/18 18:45 0.6 mg/dL (0.8-1.5) L 10/20/18 18:45 Estimated GFR > 60 ml/min 10/20/18 18:45 8 % 10/20/18 18:45 Glucose 74 mg/dL (75-100) L 10/20/18 18:45 POC Glucose 148 (70-105) H 10/20/18 19:20 Calcium 8.8 mg/dL (8.4-10.2) 10/20/18 18:45 Magnesium 1.90 mg/dL (1.7-2.3) 10/20/18 18:45 0.60 mg/dL (0.1-1.2) 10/20/18 18:45 AST 167 units/L (5-40) H 10/20/18 18:45 ALT 83 units/L (7-56) H 10/20/18 18:45 197 units/L (35-129) H 10/20/18 18:45 7.6 g/dL (6.3-8.2) 10/20/18 18:45 3.5 g/dL (3.9-5) L 10/20/18 18:45 0.9 % 10/20/18 18:45 20 units/L (13-60) 10/20/18 18:40 Yellow (Yellow) 10/20/18 19:39 Clear (Clear) 10/20/18 19:39 5.0 (5.0-7.0) 10/20/18 19:39 Ur Specific [place] 1.015 (1.003-1.030) 10/20/18 19:39 <15 mg/dl mg/dL (Negative) 10/20/18 19:39 150 mg/dL (Negative) 10/20/18 19:39 Tr mg/dL (Negative) 10/20/18 19:39 Neg (Negative) 10/20/18 19:39 Neg (Negative) 10/20/18 19:39 Neg (Negative) 10/20/18 19:39 2.0 mg/dL (<2.0) 10/20/18 19:39 Ur Leukocyte Esterase Neg (Negative) 10/20/18 19:39 1.0 /HPF (0.0-6.0) 10/20/18 19:39 1.0 /HPF (0.0-6.0) 10/20/18 19:39 U Epithel Cells (Auto) < 1.0 /HPF (0-13.0) 10/20/18 19:39 Few /HPF 10/20/18 19:39 Presumptive negative 10/20/18 19:39 Presumptive negative 10/20/18 19:39 Ur Barbiturates Screen Presumptive negative 10/20/18 19:39 Ur Phencyclidine Scrn Presumptive negative 10/20/18 19:39 Ur Amphetamines Screen Presumptive negative 10/20/18 19:39 U Benzodiazepines Scrn Presumptive negative 10/20/18 19:39 Presumptive negative 10/20/18 19:39 U Marijuana (THC) Screen Presumptive negative 10/20/18 19:39 Disclamer 10/20/18 19:39 Plasma/Serum Alcohol 0.15 % (0-0.07) H 10/20/18 19:06 Assessment and Plan Assessment and plan: Alcohol dependence with acute withdrawal -On CIWA protocol -Patient counseled on cessation Hypoglycemia -On hypoglycemic protocol Left-sided chest pain with cough -Serial troponin level monitoring -Chest x-ray to assess for infiltrate Abnormal LFT -Likely secondary to alcohol abuse DVT prophylaxis with Lovenox Disposition: Patient will be placed in inpatient status with plan for discharge when medically stable Time spent: 38 minutes
[2018-10-21] MEDS ORDERED: D5NS 1,000 ML IV SCH (01:00)
[2018-10-21] MEDS ORDERED: D50W (25GM) Syringe IV PRN (01:05)
[2018-10-21] MEDS ORDERED: LIBRIUM ONE (01:13)
[2018-10-21] MEDS: LIBRIUM PO SCH ×4 (01:13→19:57)
[2018-10-21 01:18] LABS: INR 1.01 (0.87-1.13)
[2018-10-21] MEDS: ATIVAN IV PRN (01:29)
[2018-10-21] MEDS ORDERED: ATIVAN ONE (01:32)
--- NOTE | 2018-10-21 01:46 | XRay Report ---
PROCEDURE: XR CHEST 1V AP TECHNIQUE: Chest radiograph single view. HISTORY: LT sided chest pain with cough COMPARISONS: None . FINDINGS: Heart: Normal. Mediastinum/Vessels: Normal. Lungs/Pleural space: Normal. Bony thorax: No acute osseous abnormality. Life support devices: None. IMPRESSION: No acute cardiopulmonary abnormality. This document is electronically signed by Komal Jenkins DO., October 21 2018 01:44:06 AM ET
[2018-10-21] MEDS: SODIUM CHLORIDE FLUSH SYRINGE 10 ML IV SCH ×2 (11:11→21:01)
[2018-10-21] MEDS: LOVENOX SUB-Q SCH (11:11)
[2018-10-21] MEDS: FOLVITE PO SCH (11:11)
[2018-10-21] MEDS: VITAMIN B-1 PO SCH (11:11)
[2018-10-21] MEDS: PEPCID PO SCH ×2 (11:12→20:59)
[2018-10-21] MEDS: D5/0.45NS 1,000 ML IV SCH (19:58)
[2018-10-21] MEDS ORDERED: 1: FOLVITE 1 MG, INFUVITE 10 ML, VITAMIN B-1 100 MG in NACL 0.9% 1000 ML 988.8 ML 2: NA IV SCH (20:00)
[2018-10-22] MEDS: D5/0.45NS 1,000 ML IV SCH ×2 (04:03→21:56)
[2018-10-22 06:47] LABS: Alanine Aminotransferase 58 units/L (7-56); BUN/Creatinine Ratio 7; Blood Urea Nitrogen 4 mg/dL (9-20); Hemolysis Index 34
[2018-10-22] MEDS: VITAMIN B-1 PO SCH (10:44)
[2018-10-22] MEDS: PEPCID PO SCH ×2 (10:44→21:55)
[2018-10-22] MEDS: LOVENOX SUB-Q SCH (10:44)
[2018-10-22] MEDS: SODIUM CHLORIDE FLUSH SYRINGE 10 ML IV SCH ×2 (10:45→21:55)
[2018-10-22] MEDS: FOLVITE PO SCH (10:53)
--- NOTE | 2018-10-22 17:06 | Progress Note ---
Assessment and Plan Assessment and plan: I was shaking" History of present illness: Patient is a 57-year-old -[place] male with history of alcohol abuse who presented to the ED on account of agitation. Patient stated that he usually drinks at least 2 or more bottles of 24 ounces of beer daily but on day of admission, he drank only a half a bottle of beer. He had associated lower abdominal pain, nausea with vomiting 1 episode, headaches, dry cough and left- sided chest pain. Past History Past Medical History: arthritis, other (alcohol abuse) Alcohol dependence with acute withdrawal - CIWA protocol, b1 and folic acid -Patient counseled on cessation> 10 minutes spent on preventative health counseling Hypoglycemia -cont dextrose Left-sided chest pain with cough -Serial troponin level and cxr neg -cardiology consult, stress test in am Abnormal LFT -Likely secondary to alcohol abuse DVT prophylaxis with Lovenox History Interval history: Review of systems Constitutional: No fevers, no malaise, no joint pains CVS: No chest pain, no orthopnea, no dyspnea on exertion, no pedal edema GI: No abdominal pain, no diarrhea, no vomiting, no constipation Respiratory: no wheezing, no coughing Hospitalist Physical - Physical exam Narrative exam: General.: Appears well, no distress, nontoxic HEENT: Moist mucous membranes, extraocular muscles intact, no lymphadenopathy Neck: supple Cardiac: S1-S2 heard Lungs: clear to auscultation bilaterally Abdomen: soft , nontender, nondistended, bowel sounds positive Extremities: no edema clubbing or cyanosis Skin: no rash or lesions Neurologic: no gross focal deficits Psych: calm, and cooperative - Constitutional Vitals: Temp Pulse Resp BP Pulse Ox 98.5 F 71 18 139/84 100 10/22/18 07:51 10/22/18 07:51 10/22/18 07:51 10/22/18 07:51 10/22/18 07:51 General appearance: Present: no acute distress, disheveled Results - Labs CBC & Chem 7: 10/20/18 18:45 10/22/18 05:54 Labs: Laboratory Last Values WBC 6.6 K/mm3 (4.5-11.0) 10/20/18 18:45 RBC 5.11 M/mm3 (3.65-5.03) H 10/20/18 18:45 Hgb 15.3 gm/dl (11.8-15.2) H 10/20/18 18:45 Hct 43.6 % (35.5-45.6) 10/20/18 18:45 MCV 85 fl (84-94) 10/20/18 18:45 MCH 30 pg (28-32) 10/20/18 18:45 MCHC 35 % (32-34) H 10/20/18 18:45 RDW 18.7 % (13.2-15.2) H 10/20/18 18:45 Plt Count 141 K/mm3 (140-440) 10/20/18 18:45 Add Manual Diff Complete 10/20/18 18:45 Total Counted 100 10/20/18 18:45 Seg Neuts % (Manual) 83.0 % (40.0-70.0) H 10/20/18 18:45 0 % 10/20/18 18:45 11.0 % (13.4-35.0) L 10/20/18 18:45 Reactive Lymphs % (Man) 0 % 10/20/18 18:45 4.0 % (0.0-7.3) 10/20/18 18:45 0 % (0.0-4.3) 10/20/18 18:45 2.0 % (0.0-1.8) H 10/20/18 18:45 0 % 10/20/18 18:45 0 % 10/20/18 18:45 0 % 10/20/18 18:45 0 % 10/20/18 18:45 Nucleated RBC % Not Reportable 10/20/18 18:45 Seg Neutrophils # Man 5.5 K/mm3 (1.8-7.7) 10/20/18 18:45 Band Neutrophils # 0.0 K/mm3 10/20/18 18:45 0.7 K/mm3 (1.2-5.4) L 10/20/18 18:45 Abs React Lymphs (Man) 0.0 K/mm3 10/20/18 18:45 0.3 K/mm3 (0.0-0.8) 10/20/18 18:45 0.0 K/mm3 (0.0-0.4) 10/20/18 18:45 0.1 K/mm3 (0.0-0.1) 10/20/18 18:45 0.0 K/mm3 10/20/18 18:45 0.0 K/mm3 10/20/18 18:45 0.0 K/mm3 10/20/18 18:45 Blast Cells # 0.0 K/mm3 10/20/18 18:45 WBC Morphology Not Reportable 10/20/18 18:45 Hypersegmented Neuts Not Reportable 10/20/18 18:45 Hyposegmented Neuts Not Reportable 10/20/18 18:45 Hypogranular Neuts Not Reportable 10/20/18 18:45 Not Reportable 10/20/18 18:45 Not Reportable 10/20/18 18:45 Not Reportable 10/20/18 18:45 Not Reportable 10/20/18 18:45 Not Reportable 10/20/18 18:45 Not Reportable 10/20/18 18:45 Consistent w auto 10/20/18 18:45 Not Reportable 10/20/18 18:45 Plt Clumps, EDTA Not Reportable 10/20/18 18:45 Few 10/20/18 18:45 Few 10/20/18 18:45 Not Reportable 10/20/18 18:45 Plt Morphology Comment Not Reportable 10/20/18 18:45 RBC Morphology Not Reportable 10/20/18 18:45 Dimorphic RBCs Not Reportable 10/20/18 18:45 Not Reportable 10/20/18 18:45 Not Reportable 10/20/18 18:45 Few 10/20/18 18:45 1+ 10/20/18 18:45 Not Reportable 10/20/18 18:45 Not Reportable 10/20/18 18:45 Not Reportable 10/20/18 18:45 Not Reportable 10/20/18 18:45 Not Reportable 10/20/18 18:45 2+ 10/20/18 18:45 Not Reportable 10/20/18 18:45 Not Reportable 10/20/18 18:45 Not Reportable 10/20/18 18:45 Not Reportable 10/20/18 18:45 Not Reportable 10/20/18 18:45 Not Reportable 10/20/18 18:45 Not Reportable 10/20/18 18:45 Not Reportable 10/20/18 18:45 Not Reportable 10/20/18 18:45 Acanthocytes (Spur) Not Reportable 10/20/18 18:45 Rouleaux Not Reportable 10/20/18 18:45 Not Reportable 10/20/18 18:45 Not Reportable 10/20/18 18:45 Not Reportable 10/20/18 18:45 Not Reportable 10/20/18 18:45 Hem Pathologist Commnt No 10/20/18 18:45 PT 13.9 Sec. (12.2-14.9) 10/21/18 00:38 INR 1.01 (0.87-1.13) 10/21/18 00:38 Sodium 132 mmol/L (137-145) L 10/22/18 05:54 Potassium 3.8 mmol/L (3.6-5.0) D 10/22/18 05:54 Chloride 96.6 mmol/L (98-107) L 10/22/18 05:54 Carbon Dioxide 24 mmol/L (22-30) 10/22/18 05:54 15 mmol/L 10/22/18 05:54 BUN 4 mg/dL (9-20) L 10/22/18 05:54 0.6 mg/dL (0.8-1.5) L 10/22/18 05:54 Estimated GFR > 60 ml/min 10/22/18 05:54 7 % 10/22/18 05:54 Glucose 88 mg/dL (75-100) 10/22/18 05:54 POC Glucose 71 (70-105) 10/22/18 06:25 Calcium 9.0 mg/dL (8.4-10.2) 10/22/18 05:54 Magnesium 1.90 mg/dL (1.7-2.3) 10/20/18 18:45 1.20 mg/dL (0.1-1.2) 10/22/18 05:54 AST 76 units/L (5-40) H 10/22/18 05:54 ALT 58 units/L (7-56) H 10/22/18 05:54 158 units/L (35-129) H 10/22/18 05:54 < 0.010 ng/mL (0.00-0.029) 10/21/18 07:58 6.7 g/dL (6.3-8.2) 10/22/18 05:54 3.0 g/dL (3.9-5) L 10/22/18 05:54 0.8 % 10/22/18 05:54 20 units/L (13-60) 10/20/18 18:40 Yellow (Yellow) 10/20/18 19:39 Clear (Clear) 10/20/18 19:39 5.0 (5.0-7.0) 10/20/18 19:39 Ur Specific [place] 1.015 (1.003-1.030) 10/20/18 19:39 <15 mg/dl mg/dL (Negative) 10/20/18 19:39 150 mg/dL (Negative) 10/20/18 19:39 Tr mg/dL (Negative) 10/20/18 19:39 Neg (Negative) 10/20/18 19:39 Neg (Negative) 10/20/18 19:39 Neg (Negative) 10/20/18 19:39 2.0 mg/dL (<2.0) 10/20/18 19:39 Ur Leukocyte Esterase Neg (Negative) 10/20/18 19:39 1.0 /HPF (0.0-6.0) 10/20/18 19:39 1.0 /HPF (0.0-6.0) 10/20/18 19:39 U Epithel Cells (Auto) < 1.0 /HPF (0-13.0) 10/20/18 19:39 Few /HPF 10/20/18 19:39 Presumptive negative 10/20/18 19:39 Presumptive negative 10/20/18 19:39 Ur Barbiturates Screen Presumptive negative 10/20/18 19:39 Ur Phencyclidine Scrn Presumptive negative 10/20/18 19:39 Ur Amphetamines Screen Presumptive negative 10/20/18 19:39 U Benzodiazepines Scrn Presumptive negative 10/20/18 19:39 Presumptive negative 10/20/18 19:39 U Marijuana (THC) Screen Presumptive negative 10/20/18 19:39 Disclamer 10/20/18 19:39 Plasma/Serum Alcohol 0.15 % (0-0.07) H 10/20/18 19:06 Active Medications - Current Medications Current Medications: Generic Name Dose Route Start Last Admin Trade Name Freq PRN Reason Stop Dose Admin Acetaminophen 650 mg 10/21/18 00:30 Tylenol PO Q4H PRN Pain MILD(1-3)/Fever >100.5/BOUCHER Chlordiazepoxide HCl 25 mg 10/21/18 00:45 10/21/18 19:57 Librium PO 25 mg TID DEVIN Administration Dextrose 50 ml 10/21/18 01:05 D50w (25gm) Syringe IV PRN PRN Hypoglycemia Enoxaparin Sodium 40 mg 10/21/18 10:00 10/22/18 10:44 Lovenox SUB-Q 40 mg QDAY DEVIN Administration Famotidine 10 mg 10/21/18 10:00 10/22/18 10:44 Pepcid PO 10 mg BID DEVIN Administration Folic Acid 1 mg 10/21/18 11:00 10/22/18 10:53 Folvite PO 1 mg QDAY DEVIN Administration Dextrose/Sodium Chloride 1,000 mls @ 125 mls/hr 10/21/18 11:00 10/22/18 04:03 D5/0.45ns IV 125 mls/hr DIRECT DEVIN Administration Lorazepam 2 mg 10/20/18 23:11 10/21/18 01:29 Ativan IV 2 mg Q1HR PRN Administration CIWA-Ar 8-15 Lorazepam 4 mg 10/20/18 23:11 Ativan IV Q1HR PRN CIWA-Ar 16-25 Morphine Sulfate 2 mg 10/21/18 00:30 Morphine IV Q4H PRN Pain, Moderate (4-6) Ondansetron HCl 4 mg 10/21/18 00:30 Zofran IV Q8H PRN Nausea And Vomiting Sodium Chloride 10 ml 10/21/18 10:00 10/22/18 10:45 Sodium Chloride Flush Syringe 10 Ml IV 10 ml BID DEVIN Administration Sodium Chloride 10 ml 10/21/18 00:30 10/21/18 05:19 Sodium Chloride Flush Syringe 10 Ml IV 10 ml PRN PRN Administration LINE FLUSH Thiamine HCl 100 mg 10/21/18 11:00 10/22/18 10:44 Vitamin B-1 PO 100 mg QDAY DEVIN Administration Zolpidem Tartrate 5 mg 10/21/18 00:30 Ambien PO QHS PRN Insomnia Nutrition/Malnutrition Assess - Dietary Evaluation Nutrition/Malnutrition Findings: Nutrition Notes Start: 10/21/18 16:15 Freq: Status: Active Protocol: Document 10/21/18 16:15 RM (Rec: 10/21/18 16:25 RM [id number]) 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 Stated that his appetite is " so so" now and he eats 50% of his meals here. Admitted to N/ V but has been able to keep some meals down. Declined regular ONS. Admitted to diarrhea. Stated UBW was 160 lbs 1 month ago. No temporal or orbital wasting . Percent of energy/protein needs met: 58%/75% Burn Absent Trauma Absent #1 Nutrition Diagnosis Inadequate oral intake Etiology Hx alcohol abuse As Evidenced by Signs and Symptoms pt statement that he eats 50% of his meals Is patient on ventilator? No Is Patient Ambulatory and/or Out of Bed Yes REE-([facility]-ambulatory/OOB) [ 2003.469 [id number]] Calculation Used for Recommendations [facility] Additional Notes Protein Needs: 58-73g (0.8-1g/ kg) Fluid Needs: 1 ml/kcal Nutrition Intervention Change Diet Order: Continue current Add Supplement/Snack (indicate name/kcal Ensure Clear 1 daily /protein ) Provides kCal: 240 Provides Protein (gm) 8 Goal #1 PO tolerance Goal #2 Meet at least 75% of calorie and protein needs via PO and ONS intakes Anticipated Discharge Needs: Regular Follow-Up By: 10/24/18 Additional Comments Follow for PO and ONS intakes
[2018-10-22] MEDS: LIBRIUM PO SCH ×3 (17:24→21:55)
[2018-10-23] MEDS ORDERED: LEXISCAN IV ONE ×2 (09:09→09:11)
[2018-10-23] MEDS: SODIUM CHLORIDE FLUSH SYRINGE 10 ML IV SCH ×2 (10:26→22:20)
[2018-10-23] MEDS: VITAMIN B-1 PO SCH (10:26)
[2018-10-23] MEDS: PEPCID PO SCH ×2 (10:26→22:20)
[2018-10-23] MEDS: LOVENOX SUB-Q SCH (10:26)
[2018-10-23] MEDS: LIBRIUM PO SCH ×3 (10:26→20:23)
[2018-10-23] MEDS: FOLVITE PO SCH (10:28)
--- NOTE | 2018-10-23 12:01 | Progress Note ---
Assessment and Plan Assessment and plan: I was shaking" History of present illness: Patient is a 57-year-old -[place] male with history of alcohol abuse who presented to the ED on account of agitation. Patient stated that he usually drinks at least 2 or more bottles of 24 ounces of beer daily but on day of admission, he drank only a half a bottle of beer. He had associated lower abdominal pain, nausea with vomiting 1 episode, headaches, dry cough and left- sided chest pain. Past History Past Medical History: arthritis, other (alcohol abuse) Alcohol dependence with acute withdrawal - CIWA protocol, b1 and folic acid -Patient counseled on cessation> 10 minutes spent on preventative health counseling Hypoglycemia -cont dextrose Left-sided chest pain with cough -Serial troponin level and cxr neg -cardiology consult, stress test in am Abnormal LFT -Likely secondary to alcohol abuse DVT prophylaxis with Lovenox History Interval history: Review of systems Constitutional: No fevers, no malaise, no joint pains CVS: No chest pain, no orthopnea, no dyspnea on exertion, no pedal edema GI: No abdominal pain, no diarrhea, no vomiting, no constipation Respiratory: no wheezing, no coughing Hospitalist Physical - Physical exam Narrative exam: General.: Appears well, no distress, nontoxic HEENT: Moist mucous membranes, extraocular muscles intact, no lymphadenopathy Neck: supple Cardiac: S1-S2 heard Lungs: clear to auscultation bilaterally Abdomen: soft , nontender, nondistended, bowel sounds positive Extremities: no edema clubbing or cyanosis Skin: no rash or lesions Neurologic: no gross focal deficits Psych: calm, and cooperative - Constitutional Vitals: Temp Pulse Resp BP Pulse Ox 97.9 F 77 18 137/80 100 10/23/18 11:24 10/23/18 11:24 10/23/18 11:24 10/23/18 11:24 10/23/18 11:24 General appearance: Present: no acute distress, disheveled Results - Labs CBC & Chem 7: 10/20/18 18:45 10/22/18 05:54 Labs: Laboratory Last Values WBC 6.6 K/mm3 (4.5-11.0) 10/20/18 18:45 RBC 5.11 M/mm3 (3.65-5.03) H 10/20/18 18:45 Hgb 15.3 gm/dl (11.8-15.2) H 10/20/18 18:45 Hct 43.6 % (35.5-45.6) 10/20/18 18:45 MCV 85 fl (84-94) 10/20/18 18:45 MCH 30 pg (28-32) 10/20/18 18:45 MCHC 35 % (32-34) H 10/20/18 18:45 RDW 18.7 % (13.2-15.2) H 10/20/18 18:45 Plt Count 141 K/mm3 (140-440) 10/20/18 18:45 Add Manual Diff Complete 10/20/18 18:45 Total Counted 100 10/20/18 18:45 Seg Neuts % (Manual) 83.0 % (40.0-70.0) H 10/20/18 18:45 0 % 10/20/18 18:45 11.0 % (13.4-35.0) L 10/20/18 18:45 Reactive Lymphs % (Man) 0 % 10/20/18 18:45 4.0 % (0.0-7.3) 10/20/18 18:45 0 % (0.0-4.3) 10/20/18 18:45 2.0 % (0.0-1.8) H 10/20/18 18:45 0 % 10/20/18 18:45 0 % 10/20/18 18:45 0 % 10/20/18 18:45 0 % 10/20/18 18:45 Nucleated RBC % Not Reportable 10/20/18 18:45 Seg Neutrophils # Man 5.5 K/mm3 (1.8-7.7) 10/20/18 18:45 Band Neutrophils # 0.0 K/mm3 10/20/18 18:45 0.7 K/mm3 (1.2-5.4) L 10/20/18 18:45 Abs React Lymphs (Man) 0.0 K/mm3 10/20/18 18:45 0.3 K/mm3 (0.0-0.8) 10/20/18 18:45 0.0 K/mm3 (0.0-0.4) 10/20/18 18:45 0.1 K/mm3 (0.0-0.1) 10/20/18 18:45 0.0 K/mm3 10/20/18 18:45 0.0 K/mm3 10/20/18 18:45 0.0 K/mm3 10/20/18 18:45 Blast Cells # 0.0 K/mm3 10/20/18 18:45 WBC Morphology Not Reportable 10/20/18 18:45 Hypersegmented Neuts Not Reportable 10/20/18 18:45 Hyposegmented Neuts Not Reportable 10/20/18 18:45 Hypogranular Neuts Not Reportable 10/20/18 18:45 Not Reportable 10/20/18 18:45 Not Reportable 10/20/18 18:45 Not Reportable 10/20/18 18:45 Not Reportable 10/20/18 18:45 Not Reportable 10/20/18 18:45 Not Reportable 10/20/18 18:45 Consistent w auto 10/20/18 18:45 Not Reportable 10/20/18 18:45 Plt Clumps, EDTA Not Reportable 10/20/18 18:45 Few 10/20/18 18:45 Few 10/20/18 18:45 Not Reportable 10/20/18 18:45 Plt Morphology Comment Not Reportable 10/20/18 18:45 RBC Morphology Not Reportable 10/20/18 18:45 Dimorphic RBCs Not Reportable 10/20/18 18:45 Not Reportable 10/20/18 18:45 Not Reportable 10/20/18 18:45 Few 10/20/18 18:45 1+ 10/20/18 18:45 Not Reportable 10/20/18 18:45 Not Reportable 10/20/18 18:45 Not Reportable 10/20/18 18:45 Not Reportable 10/20/18 18:45 Not Reportable 10/20/18 18:45 2+ 10/20/18 18:45 Not Reportable 10/20/18 18:45 Not Reportable 10/20/18 18:45 Not Reportable 10/20/18 18:45 Not Reportable 10/20/18 18:45 Not Reportable 10/20/18 18:45 Not Reportable 10/20/18 18:45 Not Reportable 10/20/18 18:45 Not Reportable 10/20/18 18:45 Not Reportable 10/20/18 18:45 Acanthocytes (Spur) Not Reportable 10/20/18 18:45 Rouleaux Not Reportable 10/20/18 18:45 Not Reportable 10/20/18 18:45 Not Reportable 10/20/18 18:45 Not Reportable 10/20/18 18:45 Not Reportable 10/20/18 18:45 Hem Pathologist Commnt No 10/20/18 18:45 PT 13.9 Sec. (12.2-14.9) 10/21/18 00:38 INR 1.01 (0.87-1.13) 10/21/18 00:38 Sodium 132 mmol/L (137-145) L 10/22/18 05:54 Potassium 3.8 mmol/L (3.6-5.0) D 10/22/18 05:54 Chloride 96.6 mmol/L (98-107) L 10/22/18 05:54 Carbon Dioxide 24 mmol/L (22-30) 10/22/18 05:54 15 mmol/L 10/22/18 05:54 BUN 4 mg/dL (9-20) L 10/22/18 05:54 0.6 mg/dL (0.8-1.5) L 10/22/18 05:54 Estimated GFR > 60 ml/min 10/22/18 05:54 7 % 10/22/18 05:54 Glucose 88 mg/dL (75-100) 10/22/18 05:54 POC Glucose 74 (70-105) 10/23/18 10:45 Calcium 9.0 mg/dL (8.4-10.2) 10/22/18 05:54 Magnesium 1.90 mg/dL (1.7-2.3) 10/20/18 18:45 1.20 mg/dL (0.1-1.2) 10/22/18 05:54 AST 76 units/L (5-40) H 10/22/18 05:54 ALT 58 units/L (7-56) H 10/22/18 05:54 158 units/L (35-129) H 10/22/18 05:54 < 0.010 ng/mL (0.00-0.029) 10/21/18 07:58 6.7 g/dL (6.3-8.2) 10/22/18 05:54 3.0 g/dL (3.9-5) L 10/22/18 05:54 0.8 % 10/22/18 05:54 20 units/L (13-60) 10/20/18 18:40 Yellow (Yellow) 10/20/18 19:39 Clear (Clear) 10/20/18 19:39 5.0 (5.0-7.0) 10/20/18 19:39 Ur Specific [place] 1.015 (1.003-1.030) 10/20/18 19:39 <15 mg/dl mg/dL (Negative) 10/20/18 19:39 150 mg/dL (Negative) 10/20/18 19:39 Tr mg/dL (Negative) 10/20/18 19:39 Neg (Negative) 10/20/18 19:39 Neg (Negative) 10/20/18 19:39 Neg (Negative) 10/20/18 19:39 2.0 mg/dL (<2.0) 10/20/18 19:39 Ur Leukocyte Esterase Neg (Negative) 10/20/18 19:39 1.0 /HPF (0.0-6.0) 10/20/18 19:39 1.0 /HPF (0.0-6.0) 10/20/18 19:39 U Epithel Cells (Auto) < 1.0 /HPF (0-13.0) 10/20/18 19:39 Few /HPF 10/20/18 19:39 Presumptive negative 10/20/18 19:39 Presumptive negative 10/20/18 19:39 Ur Barbiturates Screen Presumptive negative 10/20/18 19:39 Ur Phencyclidine Scrn Presumptive negative 10/20/18 19:39 Ur Amphetamines Screen Presumptive negative 10/20/18 19:39 U Benzodiazepines Scrn Presumptive negative 10/20/18 19:39 Presumptive negative 10/20/18 19:39 U Marijuana (THC) Screen Presumptive negative 10/20/18 19:39 Disclamer 10/20/18 19:39 Plasma/Serum Alcohol 0.15 % (0-0.07) H 10/20/18 19:06 Active Medications - Current Medications Current Medications: Generic Name Dose Route Start Last Admin Trade Name Freq PRN Reason Stop Dose Admin Acetaminophen 650 mg 10/21/18 00:30 Tylenol PO Q4H PRN Pain MILD(1-3)/Fever >100.5/BOUCHER Chlordiazepoxide HCl 25 mg 10/21/18 00:45 10/23/18 10:26 Librium PO 25 mg TID DEVIN Administration Dextrose 50 ml 10/21/18 01:05 D50w (25gm) Syringe IV PRN PRN Hypoglycemia Enoxaparin Sodium 40 mg 10/21/18 10:00 10/23/18 10:26 Lovenox SUB-Q 40 mg QDAY DEVIN Administration Famotidine 10 mg 10/21/18 10:00 10/23/18 10:26 Pepcid PO 10 mg BID DEVIN Administration Folic Acid 1 mg 10/21/18 11:00 10/23/18 10:28 Folvite PO 1 mg QDAY DEVIN Administration Dextrose/Sodium Chloride 1,000 mls @ 125 mls/hr 10/21/18 11:00 10/22/18 21:56 D5/0.45ns IV 125 mls/hr DIRECT DEVIN Administration Lorazepam 2 mg 10/20/18 23:11 10/21/18 01:29 Ativan IV 2 mg Q1HR PRN Administration CIWA-Ar 8-15 Lorazepam 4 mg 10/20/18 23:11 Ativan IV Q1HR PRN CIWA-Ar 16-25 Morphine Sulfate 2 mg 10/21/18 00:30 Morphine IV Q4H PRN Pain, Moderate (4-6) Ondansetron HCl 4 mg 10/21/18 00:30 Zofran IV Q8H PRN Nausea And Vomiting Sodium Chloride 10 ml 10/21/18 10:00 10/23/18 10:26 Sodium Chloride Flush Syringe 10 Ml IV 10 ml BID DEVIN Administration Sodium Chloride 10 ml 10/21/18 00:30 10/21/18 05:19 Sodium Chloride Flush Syringe 10 Ml IV 10 ml PRN PRN Administration LINE FLUSH Thiamine HCl 100 mg 10/21/18 11:00 10/23/18 10:26 Vitamin B-1 PO 100 mg QDAY DEVIN Administration Zolpidem Tartrate 5 mg 10/21/18 00:30 Ambien PO QHS PRN Insomnia Nutrition/Malnutrition Assess - Dietary Evaluation Nutrition/Malnutrition Findings: Nutrition Notes Start: 10/21/18 16:15 Freq: Status: Active Protocol: Document 10/21/18 16:15 RM (Rec: 10/21/18 16:25 RM [id number]) 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 Stated that his appetite is " so so" now and he eats 50% of his meals here. Admitted to N/ V but has been able to keep some meals down. Declined regular ONS. Admitted to diarrhea. Stated UBW was 160 lbs 1 month ago. No temporal or orbital wasting . Percent of energy/protein needs met: 58%/75% Burn Absent Trauma Absent #1 Nutrition Diagnosis Inadequate oral intake Etiology Hx alcohol abuse As Evidenced by Signs and Symptoms pt statement that he eats 50% of his meals Is patient on ventilator? No Is Patient Ambulatory and/or Out of Bed Yes REE-([facility]-ambulatory/OOB) [ 2003.469 [id number]] Calculation Used for Recommendations [facility] Additional Notes Protein Needs: 58-73g (0.8-1g/ kg) Fluid Needs: 1 ml/kcal Nutrition Intervention Change Diet Order: Continue current Add Supplement/Snack (indicate name/kcal Ensure Clear 1 daily /protein ) Provides kCal: 240 Provides Protein (gm) 8 Goal #1 PO tolerance Goal #2 Meet at least 75% of calorie and protein needs via PO and ONS intakes Anticipated Discharge Needs: Regular Follow-Up By: 10/24/18 Additional Comments Follow for PO and ONS intakes
--- NOTE | 2018-10-23 12:35 | Event Note ---
Date: 10/23/18 Detailed cardiology consultation dictated. Pt underwent lexiscan MPI stress test this morning which was negative. Currently stable cardiac status. Nothing further to add from cardiac perspective at this time. Will sign off. Heidi DE LUNA NP / DR. RAMOS
[2018-10-23] MEDS: D5/0.45NS 1,000 ML IV SCH (14:19)
--- NOTE | 2018-10-23 23:50 | Consultation ---
CONSULTATION REQUESTED BY: Dr. Lizbet Galicia. CONSULTING PHYSICIAN: Dr. Heidi Aguirre. HISTORY OF PRESENT ILLNESS: This is a 57-year-old -[place]ry[place] male who was admitted to the hospital on 10/21/2018 with complaints of agitation. Later, the patient complained of chest pain, hence the consultation. The patient is a very poor historian. I was unable to get any good history from the patient. The patient states that he has been doing reasonably well; he has problems with alcohol abuse. Apparently, he drinks at least two or more bottles of beer of 24 ounces every day. On the day of admission, he did drink only half a bottle. Then, he started having lower abdominal pain followed by nausea and vomiting. Then, he started experiencing left-sided chest pain, which is dull in nature, sharp at times, not like a pressure, heaviness or tightness. No definite radiation to the neck, throat, or arms. Not aggravated by deep breathing or cough. Pain was persistent. Along with that, the patient was also complaining of abdominal pain and nausea. He did complain of some cough. No fever or chills. No orthopnea or PND. No edema of feet. No palpitations or claudications. Dizziness noted. No syncope. The patient denied any prior known cardiac problems. PAST MEDICAL HISTORY: According to the patient, it is negative for any hypertension or diabetes or hyperlipidemia. He does give a history of arthritis. PAST SURGICAL HISTORY: History of right hand surgery in the past. SOCIAL HISTORY: The patient gives history of smoking for over 40 years. Also, gives history of ethanol abuse. FAMILY HISTORY: Unremarkable. ALLERGIES: None known to medications. MEDICATIONS: Ibuprofen and albuterol inhaler. REVIEW OF SYSTEMS: CARDIOVASCULAR: As described above. RESPIRATORY: The patient does not give any history of asthma. No complaints at the present time, but did complain of abdominal pain, nausea and vomiting prior to admission. PHYSICAL EXAMINATION: GENERAL: This is a 57-year-old -Prydein[place] male, well built, well-nourished, no acute distress at the present time. The patient is conscious, alert, oriented, and afebrile. VITAL SIGNS: Normal and stable. SKIN: Warm and dry. HEENT: Pupils are reactive. NECK: Supple. Both carotids well palpable. No definite bruit. No JVD. LUNGS: Clear. CARDIOVASCULAR: S1, S2 heard well. Grade 1/6 systolic murmur noted. No diastolic murmur. No gallop rhythm. ABDOMEN: Soft. Diffuse tenderness noted. No palpable masses. Bowel sounds were present. NEUROLOGIC: Neurologic evaluation was grossly within normal limits. EXTREMITIES: No edema, no calf tenderness. Good peripheral pulses. RECTAL: Not done at this time. EKG done showed no acute changes. LABORATORY DATA: The patient's hemoglobin was 15.3, hematocrit 43.6. The patient's BUN was 5 and creatinine 0.5 mg. Glucose of 74. Enzymes are negative for myocardial infarction. DIAGNOSES: 1. Chest pain, questionable cause, rule out cardiac etiology. 2. Ethanol abuse. 3. History of smoking. 4. Abnormal LFTs, probably secondary to ethanol abuse. ASSESSMENT AND PLAN: This is a 57-year-old white male seen in consultation because of left-sided chest pain, which is very atypical for cardiac etiology. The patient has a history of ethanol abuse and tobacco abuse. He denied any prior history of hypertension, hyperlipidemia, or diabetes. At this time, his examination is unremarkable. We will proceed with a Lexiscan thallium test to rule out cardiac etiology. If negative, the patient may need GI workup with his complaints of abdominal pain, nausea, vomiting, abdominal tenderness, etc. Discussed all of these in detail with the patient. The patient expressed understanding. We will follow the patient along with you. JOB# [id number] KEITH/XAVI
[2018-10-24] MEDS: ATIVAN IV PRN ×3 (02:05→11:10)
[2018-10-24] MEDS ORDERED: HABITROL TD SCH (02:18)
[2018-10-24] MEDS: D5/0.45NS 1,000 ML IV SCH (07:06)
[2018-10-24] MEDS: LIBRIUM PO SCH ×2 (08:20→13:12)
[2018-10-24] MEDS: FOLVITE PO SCH (09:46)
[2018-10-24] MEDS: LOVENOX SUB-Q SCH (09:46)
[2018-10-24] MEDS: SODIUM CHLORIDE FLUSH SYRINGE 10 ML IV SCH (09:46)
[2018-10-24] MEDS: PEPCID PO SCH (09:46)
[2018-10-24] MEDS: VITAMIN B-1 PO SCH (09:46)
[2018-10-24 12:38] VITALS: BP 137/78
--- NOTE | 2018-10-24 12:56 | Discharge Summary ---
Providers - Providers Date of Admission: 10/21/18 00:30 Attending physician: SANDRA LOPEZ MD [facility] Condition: Stable Hospital course: I was shaking" History of present illness: Patient is a 57-year-old -[place] male with history of alcohol abuse who presented to the ED on account of agitation. Patient stated that he usually drinks at least 2 or more bottles of 24 ounces of beer daily but on day of admission, he drank only a half a bottle of beer. He had associated lower abdominal pain, nausea with vomiting 1 episode, headaches, dry cough and left- sided chest pain. Past History Past Medical History: arthritis, other (alcohol abuse) Alcohol dependence with acute withdrawal - He received CIWA protocol, b1 and folic acid -Patient counseled on cessation> 10 minutes spent on preventative health counseling Hypoglycemia -He was treated with dextrose and diet and it resolved Left-sided chest pain with cough -Serial troponin level and cxr neg Patient went on to have a stress test that was negative Abnormal LFT -Likely secondary to alcohol abuse, no further workup indicated DVT prophylaxis with Lovenox Disposition: DC-01 TO HOME OR SELFCARE Time spent for discharge: 33 mins Core Measure Documentation - Palliative Care Palliative Care/ Comfort Measures: Not Applicable - Core Measures Any of the following diagnoses?: none Exam - Constitutional Vitals: Temp Pulse Resp BP Pulse Ox 97.9 F 63 18 137/78 98 10/24/18 12:37 10/24/18 12:37 10/24/18 12:37 10/24/18 12:37 10/24/18 12:37 General appearance: Present: no acute distress, well-nourished - EENT Eyes: Present: PERRL ENT: hearing intact, clear oral mucosa - Neck Neck: Present: supple, normal ROM - Respiratory Respiratory effort: normal Respiratory: bilateral: CTA - Cardiovascular Heart Sounds: Present: S1 & S2. Absent: rub, click - Extremities Extremities: pulses symmetrical, No edema Peripheral Pulses: within normal limits - Abdominal General gastrointestinal: Present: soft, non-tender, non-distended, normal bowel sounds Male genitourinary: Present: normal - Integumentary Integumentary: Present: clear, warm, dry - Musculoskeletal Musculoskeletal: gait normal, strength equal bilaterally - Psychiatric Psychiatric: appropriate mood/affect, intact judgment & insight - Neurologic Neurologic: CNII-XII intact, moves all extremities Plan Follow up with: BRIAN PEREZ MD [Primary Care Provider] - 7 Days Prescriptions: Folic Acid [Folvite] 1 mg PO QDAY #30 tablet Nicotine [Habitrol] 21 mg TD QDAY #30 patch chlordiazePOXIDE [Librium] 25 mg PO TID #3 capsule Thiamine [Vitamin B-1] 100 mg PO QDAY #30 tablet
--- NOTE | 2018-10-26 10:30 | Treadmill Report ---
NUCLEAR MYOCARDIAL PERFUSION IMAGING REPORT Nuclear myocardial perfusion imagings were obtained using technetium pyrophosphate Tetrofosmin. One day protocol was performed using rest images and post-stress images and also post-stress gated images were reviewed. The patient was noted to have a normal perfusion during both resting images and also post-stress images. No evidence of reversible defects noted. Transient ischemic dilation ratio was found to be 0.89. Left ventricular size was found to be normal with normal wall thickening and contractility. Calculated left ventricular ejection fraction of 68% was noted. FINAL IMPRESSION: 1. Normal myocardial perfusion imaging study. 2. Normal left ventricular systolic function. Prognostically, this was found to be a low-risk study for future cardiac events. [facility]# [id number] GEORGI/XAVI
== END 2018-10-24 16:42 | disposition home or self-care (01) | DRG 641 ==
LOC: ED 18:16 → 4A 10-21 00:30
PROVIDERS: ADMIT Internal Medicine; ATTEND Internal Medicine
DX: E16.2 Hypoglycemia, unspecified (principal); F10.239 Alcohol dependence with withdrawal, unspecified; M19.90 Unspecified osteoarthritis, unspecified site; G89.29 Other chronic pain; M25.561 Pain in right knee; F17.200 Nicotine dependence, unspecified, uncomplicated; R07.89 Other chest pain; Z71.41 Alcohol abuse counseling and surveillance of alcoholic; Z79.899 Other long term (current) drug therapy
CPT/HCPCS: 36415; 71045; 78452; 80053; 80307; 80320; 81001; 82962; 83690; 83735; 84484; 85007; 85025; 85610; 93017; 99406; G0378; A9502; G0480; J1650; J2060; J2785; J3411; J7030; J7042

== ENCOUNTER 2018-11-08 22:23 | Emergency (ER) | payer OTHER ==
--- NOTE | 2018-11-08 22:42 | Emergency Department Report ---
Blank Doc - Documentation Documentation: 57 y o male presents alcohol intoxication stating he had a seizure 2 hours ago cc oh hands and leg shaking
--- NOTE | 2018-11-08 23:18 | Emergency Department Report ---
<NADEEM WEEMS III - Last Filed: 11/09/18 03:00> ED Seizure HPI - General Chief Complaint: Seizure Stated Complaint: SEIZURE Time Seen by Provider: 11/08/18 23:01 Source: patient Mode of arrival: Ambulatory Limitations: No Limitations - History of Present Illness Initial Comments: Patient is a 57-year-old male that presents emergency room with complaints of seizure like activity. Patient states he was at work and his hands and feet began to shake. Patient states she did not lose consciousness. Patient states he said the shaking lasted about 1-2 minutes. Patient states he's been drinking today. Denies loss of consciousness. Patient denies post ictal confusion. Patient denies chest pain. patient denies headache. Patient denies physical complaint. Patient states he says he is in the past but was not given any seizure medications due to the seizure event secondary to alcohol withdrawal. -: Sudden -: minutes(s) Witnessed:: Yes Trauma: No Seizure History: known seizure disorder, history of withdrawal se, history of non-compliance Place: work Possible Precipitating Event: none Associated Symptoms: denies: chest pain, confusion, cough, diaphoresis, fever/chills, loss of appetite, malaise, rash, shortness of breath, syncope, weakness, tongue injury, shoulder dislocation Treatments Prior to Arrival: none - Related Data Previous Rx's Medication Instructions Recorded Last Taken Type Ibuprofen [Motrin 600 MG tab] 600 mg PO Q8H PRN #30 tablet 08/18/17 Unknown Rx Albuterol Sulfate [Proair 90 mcg IH Q4HR PRN #2 aer.pow.[email or web address] 06/30/18 Unknown Rx Respiclick] Fluticasone [Flonase] 1 spray NS QDAY #1 bottle 06/30/18 Unknown Rx Multivitamin [Multiple Vitamins] 1 each PO QDAY #30 tablet 06/30/18 Unknown Rx Oxymetazoline 0.05% [Afrin] 1 spray NS BID PRN #1 bottle 06/30/18 Unknown Rx Folic Acid [Folvite] 1 mg PO QDAY #30 tablet 10/24/18 Unknown Rx Nicotine [Habitrol] 21 mg TD QDAY #30 patch 10/24/18 Unknown Rx Thiamine [Vitamin B-1] 100 mg PO QDAY #30 tablet 10/24/18 Unknown Rx chlordiazePOXIDE [Librium] 25 mg PO TID #3 capsule 10/24/18 Unknown Rx Allergies Allergy/AdvReac Type Severity Reaction Status Date / Time No Known Allergies Allergy Verified 10/20/18 18:26 ED Review of Systems Constitutional: denies: chills, fever Eyes: denies: eye pain, eye discharge, vision change ENT: denies: ear pain, throat pain Respiratory: denies: cough, shortness of breath, wheezing Cardiovascular: denies: chest pain, palpitations Endocrine: no symptoms reported Gastrointestinal: denies: abdominal pain, nausea, diarrhea Genitourinary: denies: urgency, dysuria Musculoskeletal: denies: back pain, joint swelling, arthralgia Skin: denies: rash, lesions Neurological: denies: headache, weakness, paresthesias Psychiatric: denies: anxiety, depression Hematological/Lymphatic: denies: easy bleeding, easy bruising ED Past Medical Hx - Past Medical History Previous Medical History?: Yes Hx Arthritis: Yes Hx Seizures: Yes Additional medical history: Chronic Right Knee Pain - Surgical History Past Surgical History?: Yes Additional Surgical History: Hand - Family History Family history: no significant - Social History Smoking Status: Current Every Day Smoker Substance Use Type: Alcohol - Medications Home Medications: Home Medications Medication Instructions Recorded Confirmed Last Taken Type Ibuprofen [Motrin 600 MG tab] 600 mg PO Q8H PRN #30 tablet 08/18/17 10/21/18 Unknown Rx Albuterol Sulfate [Proair 90 mcg IH Q4HR PRN #2 aer.pow.ba 06/30/18 10/21/18 Unknown Rx Respiclick] Fluticasone [Flonase] 1 spray NS QDAY #1 bottle 06/30/18 10/21/18 Unknown Rx Multivitamin [Multiple Vitamins] 1 each PO QDAY #30 tablet 06/30/18 10/21/18 Unknown Rx Oxymetazoline 0.05% [Afrin] 1 spray NS BID PRN #1 bottle 06/30/18 10/21/18 Unknown Rx Folic Acid [Folvite] 1 mg PO QDAY #30 tablet 10/24/18 Unknown Rx Nicotine [Habitrol] 21 mg TD QDAY #30 patch 10/24/18 Unknown Rx Thiamine [Vitamin B-1] 100 mg PO QDAY #30 tablet 10/24/18 Unknown Rx chlordiazePOXIDE [Librium] 25 mg PO TID #3 capsule 10/24/18 Unknown Rx ED Physical Exam - General Limitations: No Limitations General appearance: alert, in no apparent distress, appears intoxicated - Head Head exam: Present: atraumatic, normocephalic - Eye Eye exam: Present: normal appearance - ENT ENT exam: Present: mucous membranes moist - Neck Neck exam: Present: normal inspection - Respiratory Respiratory exam: Present: normal lung sounds bilaterally. Absent: respiratory distress - Cardiovascular Cardiovascular Exam: Present: regular rate, normal rhythm. Absent: systolic murmur, diastolic murmur, rubs, gallop - GI/Abdominal GI/Abdominal exam: Present: soft, normal bowel sounds - Rectal Rectal exam: Present: deferred - Extremities Exam Extremities exam: Present: normal inspection - Back Exam Back exam: Present: normal inspection - Neurological Exam Neurological exam: Present: alert, oriented X3 - Psychiatric Psychiatric exam: Present: normal affect, normal mood - Skin Skin exam: Present: warm, dry, intact, normal color. Absent: rash ED Course - Reevaluation(s) Reevaluation #1: Discussed all results with patient. Patient placed on a 2012.. Patient agrees to plan of care. Patient will be given an IV and a banana bag. 11/09/18 01:26 Patient resting in bed. No seizure activity noted no tremors at this time. patient will be remaining in the ER until patient is clinically/legally sober and the blood alcohol level is decreased to the legal limit of 0.08. Patient signed out to overnight physician Dr. Romeo to monitor patient's blood alcohol. [facility] protocol initiated 11/09/18 03:01 ED Medical Decision Making - Lab Data Result diagrams: 11/08/18 23:09 11/08/18 23:09 - EKG Data -: EKG Interpreted by [facility] EKG shows normal: sinus rhythm, axis, intervals, QRS complexes, ST-T waves Rate: normal - Medical Decision Making Patient is a 57-year-old male presents emergency room with murmurs. Patient is acutely intoxicated. Patient has a history of alcohol withdrawal seizures. Patient has not had any seizure activity ER. Patient's labs unremarkable except for elevated blood alcohol. Patient will remain in the ER. Patient placed on a 2012 and patient will remain in the ER until patient is legally and clinically sober. - Differential Diagnosis alcohol intoxication. Tremors. Seizure-like activity ED Disposition Clinical Impression: Alcohol dependence Acute alcohol intoxication Qualifiers: Complication of substance-induced condition: uncomplicated Qualified Code(s): F10.920 - Alcohol use, unspecified with intoxication, uncomplicated Disposition: DC-01 TO HOME OR SELFCARE Condition: Stable Instructions: Abuse of Alcohol (ED) Additional Instructions: Follow up with your doctor or the clinic/doctor provided. Return if symptoms worsen as indicated by your discharge instructions Referrals: [place] WOLFETNAEL PASO MD LUPILLO [Primary Care Provider] - 3-5 Days [facility] [Outside] - 3-5 Days <LIBRADO ROMEO - Last Filed: 11/09/18 05:48> ED Course - Reevaluation(s) Reevaluation #2: 11/09/18 05:48 Still intoxicated. Care will be transferred to the [facility] physician, Dr. Nova Zavala, to follow patient pending clinical sobriety, and discharged when appropriate. ED Medical Decision Making - Lab Data Result diagrams: 11/08/18 23:09 11/08/18 23:09 <DEQUAN ZAVALA - Last Filed: 11/09/18 10:03> ED Review of Systems ROS: Stated complaint: SEIZURE Other details as noted in HPI ED Course Vital Signs 11/08/18 11/09/18 22:30 05:33 Temperature 99.0 F 98.5 F Pulse Rate 103 H 96 H Respiratory 18 20 Rate Blood Pressure 130/91 Blood Pressure 136/84 [Left] O2 Sat by Pulse 97 98 Oximetry ED Medical Decision Making - Lab Data Result diagrams: 11/08/18 23:09 11/08/18 23:09 - Medical Decision Making pt more alert, fed, sister here to take him home will be d/[email or web address] Critical care attestation.: If time is entered above; I have spent that time in minutes in the direct care of this critically ill patient, excluding procedure time. ED Disposition Is pt being admited?: No Does the pt Need Aspirin: No Time of Disposition: 10:03
[2018-11-08 23:47] LABS: Alanine Aminotransferase 18 units/L (7-56); Albumin 3.8 g/dL (3.9-5); BUN/Creatinine Ratio 6; Blood Urea Nitrogen 5 mg/dL (9-20); Hemolysis Index 3
[2018-11-08 23:49] LABS: Bilirubin,Direct < 0.2 mg/dL (0-0.2)
[2018-11-09 00:15] LABS: Hematocrit 41.5 % (35.5-45.6); Hemoglobin 14.8 gm/dl (11.8-15.2); Mean Corpuscular HGB Conc 36 % (32-34); Mean Corpuscular Volume 86 fl (84-94); Platelet Count 334 K/mm3 (140-440); Red Blood Count 4.86 M/mm3 (3.65-5.03); Red Cell Distribution Width 18.1 % (13.2-15.2)
[2018-11-09 02:02] LABS: Giant Platelets 1+; RBC Morphology Normal; Total Cells Counted 100
[2018-11-09] MEDS ORDERED: VITAMIN B-1 100 MG, FOLVITE 1 MG, INFUVITE 10 ML in NACL 0.9% 1000 ML 1,000 ML IV ONE (02:26)
[2018-11-09] MEDS ORDERED: ATIVAN IV PRN ×2 (02:59)
[2018-11-09 06:27] LABS: Bacteria,Urine 1+ /HPF (Negative); Bilirubin,Urine NEG (Negative); Blood,Urine NEG (Negative); Color,Urine Straw (Yellow); Protein,Urine <15 mg/dL mg/dL (Negative); Urobilinogen,Urine < 2.0 mg/dL (<2.0); WBC,Urine < 1.0 /HPF (0.0-6.0)
[2018-11-09 06:36] LABS: Amphetamine Screen,Urine PRESUMPTIVE NEGATIVE; Benzodiazepines Screen,Urine PRESUMPTIVE NEGATIVE; Cannabinoid Screen,Urine PRESUMPTIVE NEGATIVE; Cocaine Screen,Urine PRESUMPTIVE NEGATIVE; Methadone Screen,Urine PRESUMPTIVE NEGATIVE; Opiate Screen,Urine PRESUMPTIVE NEGATIVE
[2018-11-09 10:24] VITALS: BP 160/90
== END 2018-11-09 10:13 | disposition home or self-care (01) ==
LOC: ED 22:23
DX: G40.909 Epilepsy, unspecified, not intractable, without status epilepticus (principal); F10.920 Alcohol use, unspecified with intoxication, uncomplicated
CPT/HCPCS: 36415; 80053; 80076; 80307; 81001; 85007; 85025; 93005; 93010; G0480; J3411; J7030; 80320; 96365; 96366

== ENCOUNTER 2019-02-09 17:22 | Emergency (ER) | payer SELFPAY ==
--- NOTE | 2019-02-09 17:38 | Event Note ---
ED Screening Note Date of service: 02/09/19 Time: 17:37 ED Screening Note: This is a 58 y.o. M. that presents to the ER with right sided facial swelling and abscess to right lower mandible x 1 week. Patient states he tried rinsing mouth out with peroxide and NSAIDs with no improvement for 1 week. Denies drooling, chills, hoarseness, chest pain, or SOB PMH This initial assessment/diagnostic orders/clinical plan/treatment(s) is/are subject to change based on patients health status, clinical progression and re- assessment by fellow clinical providers in the ED. Further treatment and workup at subsequent clinical providers discretion. Patient/guardian urged not to elope from the ED as their condition may be serious if not clinically assessed and managed. Initial orders include: Labs, EKG, and CXR
[2019-02-09] MEDS ORDERED: SODIUM CHLORIDE 0.9% 500 ML 500 ML IV ONE ×2 (17:40→18:05)
[2019-02-09 18:05] LABS: Hemoglobin 14.8 gm/dl (11.8-15.2); Mean Corpuscular HGB Conc 34 % (32-34); Mean Corpuscular Volume 89 fl (84-94); Platelet Count 236 K/mm3 (140-440); Red Blood Count 4.84 M/mm3 (3.65-5.03); Red Cell Distribution Width 16.4 % (13.2-15.2)
[2019-02-09] MEDS ORDERED: CLINDAMYCIN 600 MG/50 mL 600 MG/50 ML BAG IV ONE (18:05)
[2019-02-09] MEDS ORDERED: dexAMETHasone 20 MG/5 ML VIAL IV ONE (18:05)
[2019-02-09] MEDS ORDERED: LORazepam 2 MG/ML VIAL IV PRN ×3 (18:05)
--- NOTE | 2019-02-09 18:06 | Emergency Department Report ---
ED General Adult HPI - General Chief complaint: Dental/Oral Stated complaint: FACE SWELLING/EYES OZING/SOB Time Seen by Provider: 02/09/19 17:37 Source: patient, RN notes reviewed, old records reviewed Mode of arrival: Ambulatory Limitations: Physical Limitation - History of Present Illness Initial comments: This is a 58-year-old gentleman. This patient is not known to this provider previously. The patient has a history of alcohol abuse, and dependent. He presents to the ER complaint of painful right cheek and lip swelling. Symptoms are present for approximately one week. They're constant. They do not radiate anywhere. They are getting worse. He denies additional injuries and additional complaints. He reports that he had alcohol earlier on today. He does not feel like he is withdrawing. He does not endorse homicidality or suicidality. -: Gradual, days(s) Location: face, mouth Radiation: non-radiation Severity scale (0 -10): 8 Quality: aching Consistency: constant Improves with: other Worsens with: other - Related Data Previous Rx's Medication Instructions Recorded Last Taken Type Ibuprofen [Motrin 600 MG tab] 600 mg PO Q8H PRN #30 tablet 08/18/17 Unknown Rx Albuterol Sulfate [Proair 90 mcg IH Q4HR PRN #2 aer.pow.ba 06/30/18 Unknown Rx Respiclick] Fluticasone [Flonase] 1 spray NS QDAY #1 bottle 06/30/18 Unknown Rx Multivitamin [Multiple Vitamins] 1 each PO QDAY #30 tablet 06/30/18 Unknown Rx Oxymetazoline 0.05% [Vicks Sinex] 1 spray NS BID PRN #1 bottle 06/30/18 Unknown Rx Folic Acid [Folvite] 1 mg PO QDAY #30 tablet 10/24/18 Unknown Rx Nicotine [Habitrol] 21 mg TD QDAY #30 patch 10/24/18 Unknown Rx Thiamine [Vitamin B-1] 100 mg PO QDAY #30 tablet 10/24/18 Unknown Rx chlordiazePOXIDE [Librium] 25 mg PO TID #3 capsule 10/24/18 Unknown Rx Allergies Allergy/AdvReac Type Severity Reaction Status Date / Time No Known Allergies Allergy Verified 02/09/19 17:39 ED Review of Systems ROS: Stated complaint: FACE SWELLING/EYES OZING/SOB Other details as noted in HPI Constitutional: malaise, weakness Eyes: denies: eye discharge ENT: dental pain. denies: ear pain Respiratory: cough Cardiovascular: denies: syncope Gastrointestinal: denies: abdominal pain Genitourinary: denies: dysuria Musculoskeletal: myalgia Skin: denies: lesions Neurological: weakness Psychiatric: anxiety ED Past Medical Hx - Past Medical History Hx Arthritis: Yes Hx Seizures: Yes Additional medical history: Chronic Right Knee Pain - Surgical History Additional Surgical History: Hand - Social History Smoking Status: Current Every Day Smoker Substance Use Type: Alcohol - Medications Home Medications: Home Medications Medication Instructions Recorded Confirmed Last Taken Type Ibuprofen [Motrin 600 MG tab] 600 mg PO Q8H PRN #30 tablet 08/18/17 10/21/18 Unknown Rx Albuterol Sulfate [Proair 90 mcg IH Q4HR PRN #2 aer.pow.ba 06/30/18 10/21/18 Unknown Rx Respiclick] Fluticasone [Flonase] 1 spray NS QDAY #1 bottle 06/30/18 10/21/18 Unknown Rx Multivitamin [Multiple Vitamins] 1 each PO QDAY #30 tablet 06/30/18 10/21/18 Unknown Rx Oxymetazoline 0.05% [Vicks Sinex] 1 spray NS BID PRN #1 bottle 06/30/18 10/21/18 Unknown Rx Folic Acid [Folvite] 1 mg PO QDAY #30 tablet 10/24/18 Unknown Rx Nicotine [Habitrol] 21 mg TD QDAY #30 patch 10/24/18 Unknown Rx Thiamine [Vitamin B-1] 100 mg PO QDAY #30 tablet 10/24/18 Unknown Rx chlordiazePOXIDE [Librium] 25 mg PO TID #3 capsule 10/24/18 Unknown Rx ED Physical Exam - General Limitations: Physical Limitation General appearance: alert, anxious - Head Head exam: Present: atraumatic, normocephalic - Eye Eye exam: Present: normal appearance, EOMI. Absent: nystagmus - ENT ENT exam: Present: mucous membranes moist, normal external ear exam, other (patient has a large swollen, indurated and tender right cheek, and jaw. There is no stridor. There is trismus. Patient has poor dentition). Absent: normal orophraynx - Neck Neck exam: Present: normal inspection. Absent: tenderness, meningismus - Respiratory Respiratory exam: Present: normal lung sounds bilaterally. Absent: respiratory distress - Cardiovascular Cardiovascular Exam: Present: normal rhythm, tachycardia, normal heart sounds. Absent: systolic murmur, diastolic murmur, rubs, gallop - GI/Abdominal GI/Abdominal exam: Present: soft. Absent: distended, tenderness, guarding, rebound, rigid, pulsatile mass - Rectal Rectal exam: Present: deferred - Extremities Exam Extremities exam: Present: normal inspection, other (2+ pulses noted in the bilateral upper, lower extremities. There is no long bone tenderness. Musculoskeletal compartments are soft. The pelvis is stable.). Absent: pedal edema, joint swelling, calf tenderness - Back Exam Back exam: Present: normal inspection. Absent: tenderness, CVA tenderness (R), CVA tenderness (L), paraspinal tenderness, vertebral tenderness - Neurological Exam Neurological exam: Present: alert, other (there is no facial droop. The tongue is midline. Extraocular movements are intact bilaterally. Patient speaking in full complete sentences. Shoulder shrug is intact bilaterally. Hearing is grossly intact bilaterally. Visual acuity intact to finger counting and color perception at a close distance. 5/5 strength 4 extremities. Sensation intact to light touch in 4 extremities.). Absent: motor sensory deficit - Psychiatric Psychiatric exam: Present: anxious - Skin Skin exam: Present: warm, dry, intact, normal color. Absent: rash ED Course Vital Signs 02/09/19 02/09/19 02/09/19 17:38 19:38 19:46 Temperature 98.8 F Pulse Rate 120 H 103 H Respiratory 20 19 Rate Blood Pressure 97/72 126/82 [Right] O2 Sat by Pulse 99 98 Oximetry - Reevaluation(s) Reevaluation #1: 02/09/19 19:45 Differential diagnosis, including but not limited to: Abscess, parotitis, cellulitis, alcohol dependence, malnutrition Assessment and plan: 58-year-old gentleman with physical exam suggesting dental abscess, initially presents as sepsis criteria, manifest by leukocytosis, tachycardia and hypotension. Blood pressure improved, tachycardia improving, patient protecting her airway at this time. Patient requires emergent/oral surgical consultation, which this facility cannot provide, as we do not have an oral surgeon on staff. I advised the patient that he would need to be transferred for services not available at this facility. He has verbalized understanding, and is amenable to this plan of care. He is not clinically intoxicated at this time, hyponatremia likely secondary to chronic alcohol consumption. Patient protecting airway at this time, and does not require prophylactic airway intervention at this time. Reevaluation #2: 02/09/19 20:00 accecpted by [facility] surgeon, Dr Ricks ED Medical Decision Making - Lab Data Result diagrams: 02/09/19 17:51 02/09/19 17:51 Vital Signs 02/09/19 17:38 Temperature 98.8 F Pulse Rate 120 H Respiratory 20 Rate Blood Pressure 97/72 [Right] O2 Sat by Pulse 99 Oximetry Lab Results 02/09/19 02/09/19 02/09/19 Range/Units 17:51 17:51 17:51 WBC 12.1 H (4.5-11.0) K/mm3 RBC 4.84 (3.65-5.03) M/mm3 Hgb 14.8 (11.8-15.2) gm/dl Hct 43.0 (35.5-45.6) % MCV 89 (84-94) fl MCH 31 (28-32) pg MCHC 34 (32-34) % RDW 16.4 H (13.2-15.2) % Plt Count 236 (140-440) K/mm3 [place] % (Auto) Seasonal Tax Preparer Add Manual Diff Complete Total Counted 100 Seg Neuts % (Manual) 68 (40.0-70.0) % Band Neutrophils % 4.0 % Lymphocytes % (Manual) 12.0 L (13.4-35.0) % Reactive Lymphs % (Man) 0 % Monocytes % (Manual) 16 H (0.0-7.3) % Eosinophils % (Manual) 0 (0.0-4.3) % Basophils % (Manual) 0 (0.0-1.8) % Metamyelocytes % 0 % Myelocytes % 0 % Promyelocytes % 0 % Blast Cells % 0 % Nucleated RBC % Not Reportable Seg Neutrophils # Man 8.2 H (1.8-7.7) K/mm3 Band Neutrophils # 0.5 K/mm3 Lymphocytes # (Manual) 1.5 (1.2-5.4) K/mm3 Abs React Lymphs (Man) 0.0 K/mm3 Monocytes # (Manual) 1.9 H (0.0-0.8) K/mm3 Eosinophils # (Manual) 0.0 (0.0-0.4) K/mm3 Basophils # (Manual) 0.0 (0.0-0.1) K/mm3 Metamyelocytes # 0.0 K/mm3 Myelocytes # 0.0 K/mm3 Promyelocytes # 0.0 K/mm3 Blast Cells # 0.0 K/mm3 WBC Morphology Not Reportable Hypersegmented Neuts Not Reportable Hyposegmented Neuts Not Reportable Hypogranular Neuts Not Reportable Smudge Cells Not Reportable Toxic Granulation Not Reportable Toxic Vacuolation Not Reportable Dohle Bodies Not Reportable Pelger-Huet Anomaly Not Reportable [place] Rods Not Reportable Platelet Estimate Not Reportable Clumped Platelets Not Reportable Plt Clumps, EDTA Not Reportable Large Platelets Not Reportable Giant Platelets Not Reportable Platelet Satelliting Not Reportable Plt Morphology Comment Not Reportable RBC Morphology Not Reportable Dimorphic RBCs Not Reportable Polychromasia Not Reportable Hypochromasia Not Reportable Poikilocytosis Not Reportable Anisocytosis 1+ Microcytosis Not Reportable Macrocytosis Not Reportable Spherocytes Not Reportable Pappenheimer Bodies Not Reportable Sickle Cells Not Reportable Target Cells Few Tear Drop Cells Not Reportable Ovalocytes Not Reportable Helmet Cells Not Reportable [place] Bodies Not Reportable [place] Rings Not Reportable Michael Cells Not Reportable Bite Cells Not Reportable Crenated Cell Not Reportable Elliptocytes Not Reportable Acanthocytes (Spur) Not Reportable Rouleaux Not Reportable Hemoglobin C Crystals Not Reportable Schistocytes Not Reportable Malaria parasites Not Reportable Vinny Bodies Not Reportable Hem Pathologist Commnt No PT 13.8 (12.2-14.9) Sec. INR 1.09 (0.87-1.13) VBG pH (7.320-7.420) Sodium 129 L (137-145) mmol/L Potassium 3.7 (3.6-5.0) mmol/L Chloride 89.6 L (98-107) mmol/L Carbon Dioxide 22 (22-30) mmol/L Anion Gap 21 mmol/L BUN 10 (9-20) mg/dL Creatinine 0.9 (0.8-1.5) mg/dL Estimated GFR > 60 ml/min BUN/Creatinine Ratio 11 % Glucose 81 (75-100) mg/dL Lactic Acid (0.7-2.0) mmol/L Calcium 9.5 (8.4-10.2) mg/dL Total Bilirubin 1.30 H (0.1-1.2) mg/dL AST 32 (5-40) units/L ALT 21 (7-56) units/L Alkaline Phosphatase 143 H (35-129) units/L Total Protein 8.8 H (6.3-8.2) g/dL Albumin 3.6 L (3.9-5) g/dL Albumin/Globulin Ratio 0.7 % Salicylates (2.8-20.0) mg/dL Acetaminophen (10.0-30.0) ug/mL Plasma/Serum Alcohol (0-0.07) % 02/09/19 02/09/19 02/09/19 Range/Units 17:51 17:51 17:51 WBC (4.5-11.0) K/mm3 RBC (3.65-5.03) M/mm3 Hgb (11.8-15.2) gm/dl Hct (35.5-45.6) % MCV (84-94) fl MCH (28-32) pg MCHC (32-34) % RDW (13.2-15.2) % Plt Count (140-440) K/mm3 [place] % (Auto) Add Manual Diff Total Counted Seg Neuts % (Manual) (40.0-70.0) % Band Neutrophils % % Lymphocytes % (Manual) (13.4-35.0) % Reactive Lymphs % (Man) % Monocytes % (Manual) (0.0-7.3) % Eosinophils % (Manual) (0.0-4.3) % Basophils % (Manual) (0.0-1.8) % Metamyelocytes % % Myelocytes % % Promyelocytes % % Blast Cells % % Nucleated RBC % Seg Neutrophils # Man (1.8-7.7) K/mm3 Band Neutrophils # K/mm3 Lymphocytes # (Manual) (1.2-5.4) K/mm3 Abs React Lymphs (Man) K/mm3 Monocytes # (Manual) (0.0-0.8) K/mm3 Eosinophils # (Manual) (0.0-0.4) K/mm3 Basophils # (Manual) (0.0-0.1) K/mm3 Metamyelocytes # K/mm3 Myelocytes # K/mm3 Promyelocytes # K/mm3 Blast Cells # K/mm3 WBC Morphology TNR Hypersegmented Neuts Hyposegmented Neuts Hypogranular Neuts Smudge Cells Toxic Granulation Toxic Vacuolation Dohle Bodies Pelger-Huet Anomaly Desmond Rods Platelet Estimate Clumped Platelets Plt Clumps, EDTA Large Platelets Giant Platelets Platelet Satelliting Plt Morphology Comment RBC Morphology Dimorphic RBCs Polychromasia Hypochromasia Poikilocytosis Anisocytosis Microcytosis Macrocytosis Spherocytes Pappenheimer Bodies Sickle Cells Target Cells Tear Drop Cells Ovalocytes Helmet Cells [place] Bodies [place] Rings Michael Cells Bite Cells Crenated Cell Elliptocytes Acanthocytes (Spur) Rouleaux Hemoglobin C Crystals Schistocytes Malaria parasites Vinny Bodies Hem Pathologist Commnt PT (12.2-14.9) Sec. INR (0.87-1.13) VBG pH 7.399 (7.320-7.420) Sodium (137-145) mmol/L Potassium (3.6-5.0) mmol/L Chloride (98-107) mmol/L Carbon Dioxide (22-30) mmol/L Anion Gap mmol/L BUN (9-20) mg/dL Creatinine (0.8-1.5) mg/dL Estimated GFR ml/min BUN/Creatinine Ratio % Glucose (75-100) mg/dL Lactic Acid 1.60 (0.7-2.0) mmol/L Calcium (8.4-10.2) mg/dL Total Bilirubin (0.1-1.2) mg/dL AST (5-40) units/L ALT (7-56) units/L Alkaline Phosphatase (35-129) units/L Total Protein (6.3-8.2) g/dL Albumin (3.9-5) g/dL Albumin/Globulin Ratio % Salicylates (2.8-20.0) mg/dL Acetaminophen (10.0-30.0) ug/mL Plasma/Serum Alcohol (0-0.07) % 02/09/19 02/09/19 02/09/19 Range/Units 18:21 18:21 18:21 WBC (4.5-11.0) K/mm3 RBC (3.65-5.03) M/mm3 Hgb (11.8-15.2) gm/dl Hct (35.5-45.6) % MCV (84-94) fl MCH (28-32) pg MCHC (32-34) % RDW (13.2-15.2) % Plt Count (140-440) K/mm3 [place] % (Auto) Add Manual Diff Total Counted Seg Neuts % (Manual) (40.0-70.0) % Band Neutrophils % % Lymphocytes % (Manual) (13.4-35.0) % Reactive Lymphs % (Man) % Monocytes % (Manual) (0.0-7.3) % Eosinophils % (Manual) (0.0-4.3) % Basophils % (Manual) (0.0-1.8) % Metamyelocytes % % Myelocytes % % Promyelocytes % % Blast Cells % % Nucleated RBC % Seg Neutrophils # Man (1.8-7.7) K/mm3 Band Neutrophils # K/mm3 Lymphocytes # (Manual) (1.2-5.4) K/mm3 Abs React Lymphs (Man) K/mm3 Monocytes # (Manual) (0.0-0.8) K/mm3 Eosinophils # (Manual) (0.0-0.4) K/mm3 Basophils # (Manual) (0.0-0.1) K/mm3 Metamyelocytes # K/mm3 Myelocytes # K/mm3 Promyelocytes # K/mm3 Blast Cells # K/mm3 WBC Morphology Hypersegmented Neuts Hyposegmented Neuts Hypogranular Neuts Smudge Cells Toxic Granulation Toxic Vacuolation Dohle Bodies Pelger-Huet Anomaly Desmond Rods Platelet Estimate Clumped Platelets Plt Clumps, EDTA Large Platelets Giant Platelets Platelet Satelliting Plt Morphology Comment RBC Morphology Dimorphic RBCs Polychromasia Hypochromasia Poikilocytosis Anisocytosis Microcytosis Macrocytosis Spherocytes Pappenheimer Bodies Sickle Cells Target Cells Tear Drop Cells Ovalocytes Helmet Cells [place] Bodies [place] Rings Michael Cells Bite Cells Crenated Cell Elliptocytes Acanthocytes (Spur) Rouleaux Hemoglobin C Crystals Schistocytes Malaria parasites Vinny Bodies Hem Pathologist Commnt PT (12.2-14.9) Sec. INR (0.87-1.13) VBG pH (7.320-7.420) Sodium (137-145) mmol/L Potassium (3.6-5.0) mmol/L Chloride (98-107) mmol/L Carbon Dioxide (22-30) mmol/L Anion Gap mmol/L BUN (9-20) mg/dL Creatinine (0.8-1.5) mg/dL Estimated GFR ml/min BUN/Creatinine Ratio % Glucose (75-100) mg/dL Lactic Acid (0.7-2.0) mmol/L Calcium (8.4-10.2) mg/dL Total Bilirubin (0.1-1.2) mg/dL AST (5-40) units/L ALT (7-56) units/L Alkaline Phosphatase (35-129) units/L Total Protein (6.3-8.2) g/dL Albumin (3.9-5) g/dL Albumin/Globulin Ratio % Salicylates < 0.3 L (2.8-20.0) mg/dL Acetaminophen < 5.0 L (10.0-30.0) ug/mL Plasma/Serum Alcohol < 0.01 (0-0.07) % - Radiology Data Radiology results: report reviewed, image reviewed Print Report Referring Physician: LIBRADO MIKE Patient Name: TRUE MCCALLUM Date of : 1960 Sex: Male Report Date: 2019-02-09 Report Status: Finalized Findings [facility] [address] [place] [address] Cat Scan Report Signed Patient: TRUE MCCALLUM MR#: [id number] : 1960 Acct:[id number] Age/Sex: 58 / M ADM Date: 02/09/19 Loc: ED Attending Dr: Ordering Physician: LIBRADO MIKE MD Date of Service: 02/09/19 Procedure(s): CT facial bones w con Accession Number(s): [id number] cc: LIBRADO MIKE MD CT MAXILLOFACIAL WITH INTRAVENOUS CONTRAST INDICATION / CLINICAL INFORMATION: facial swelling pain abscess. TECHNIQUE: All CT scans at this location are performed using CT dose reduction for ALARA by means of automated exposure control. COMPARISON: None available. FINDINGS: SOFT TISSUE FACE: There is a large, multiloculated abscess along the buccal surface of the posterior body of the mandible extending up along the mandibular ramus. This measures about 1.4 x 2.7 cm in transverse dimension by 3 cm in superior-inferior dimension. There is adjacent periodontal disease. This is likely an odontogenic infection. There is extensive cellulitic change in the adjacent cheek. There is inflammatory change in the adjacent right masseter muscle which appears to be enlarged. Reactive level 1B lymphadenopathy is noted. Parotid and submandibular salivary glands have an unremarkable appearance. Abnormalities are seen on evaluation of the floor the mouth. Tongue has an unremarkable appearance. FACIAL BONES: Extensive periodontal disease is noted along the inferior alveolar ridge and superior alveolar ridge bilaterally. There is no indication of fracture or other osseous abnormality. PARANASAL SINUSES: Paranasal sinuses are free from inflammatory mucosal disease. NASAL CAVITY: No abnormality. ORBITS: No significant abnormality. VISUALIZED INTRACRANIAL STRUCTURES: No significant abnormality. IMPRESSION: 1. Large multiloculated abscess along the buccal surface of the right mandible adjacent to the posterior body and mandibular ramus. There is extensive associated cellulitis. Given the appearance of extensive periodontal disease this is likely odontogenic in origin. Contrast dose report: Omnipaque 300: 100 mL administered intravenously. Signer Name: Jimy Murry MD Signed: 02/09/2019 7:22 PM Workstation Name: [id number] Transcribed By: Dictated By: Jimy Murry MD Electronically Authenticated By: Jimy Murry MD Signed Date/Time: 02/09/191921 Print Report Referring Physician: BOB PACHECO Patient Name: TRUE MCCALLUM Date of : 1960 Sex: Male Report Date: 2019-02-09 Report Status: Finalized Findings [facility] [address] [place] [address] XRay Report Signed Patient: RTUE MCCALLUM MR#: [id number] : 1960 Acct:[id number] Age/Sex: 58 / M ADM Date: 02/09/19 Loc: ED Attending Dr: Ordering Physician: ANAYELI KENNEDY Date of Service: 02/09/19 Procedure(s): XR chest 1V ap Accession Number(s): [id number] cc: ANAYELI KENNEDY Fluoro Time In Minutes: CHEST 1 VIEW 5:55 PM INDICATION / CLINICAL INFORMATION: Shortness of breath. Possible sepsis. COMPARISON: 06/30/2018. FINDINGS: SUPPORT DEVICES: None. HEART / MEDIASTINUM: The heart size and pulmonary vasculature are normal. LUNGS / PLEURA: No significant pulmonary or pleural abnormality. No pneumothorax. ADDITIONAL FINDINGS: The left hemidiaphragm is slightly higher than the right. IMPRESSION: No acute abnormality. There is no evidence of pneumonia. Signer Name: Erick Beck MD Signed: 02/09/2019 6:20 PM Workstation Name: [id number] Transcribed By: RT Dictated By: Erick Beck MD Electronically Authenticated By: Erick Beck MD Signed Date/Time: 02/09/191819 DD/ 18 Critical Care Time: Yes Critical care time in (mins) excluding proc time.: 35 Critical care attestation.: If time is entered above; I have spent that time in minutes in the direct care of this critically ill patient, excluding procedure time. ED Disposition Clinical Impression: Sepsis, Facial abscess [facility] IP Is pt being admited?: No Does the pt Need Aspirin: No Condition: Serious Referrals: BRIAN PEREZ MD [Primary Care Provider] - 3-5 Days
[2019-02-09 18:14] LABS: INR 1.09 (0.87-1.13)
[2019-02-09] MEDS ORDERED: SODIUM CHLORIDE 0.9% 1000 ML 1,000 ML ONE (18:14)
[2019-02-09 18:23] LABS: Alanine Aminotransferase 21 units/L (7-56); Albumin 3.6 g/dL (3.9-5); BUN/Creatinine Ratio 11; Blood Urea Nitrogen 10 mg/dL (9-20); Calcium 9.5 mg/dL (8.4-10.2); Hemolysis Index 3
--- NOTE | 2019-02-09 18:24 | XRay Report ---
CHEST 1 VIEW 5:55 PM INDICATION / CLINICAL INFORMATION: Shortness of breath. Possible sepsis. COMPARISON: 06/30/2018. FINDINGS: SUPPORT DEVICES: None. HEART / MEDIASTINUM: The heart size and pulmonary vasculature are normal. LUNGS / PLEURA: No significant pulmonary or pleural abnormality. No pneumothorax. ADDITIONAL FINDINGS: The left hemidiaphragm is slightly higher than the right. IMPRESSION: No acute abnormality. There is no evidence of pneumonia. Signer Name: Erick Beck MD Signed: 02/09/2019 6:20 PM Workstation Name: [id number]
[2019-02-09 18:58] LABS: Band Neutrophils # (Manual) 0.5 K/mm3; Basophils % (Manual) 0 % (0.0-1.8); Eosinophils % (Manual) 0 % (0.0-4.3); Monocytes % (Manual) 16 % (0.0-7.3); Total Cells Counted 100
[2019-02-09 18:59] LABS: Anisocytosis 1+; Target Cells Few
[2019-02-09] MEDS ORDERED: D5W/0.45% NACL 1,000 ML IV SCH (19:00)
--- NOTE | 2019-02-09 19:27 | Cat Scan Report ---
CT MAXILLOFACIAL WITH INTRAVENOUS CONTRAST INDICATION / CLINICAL INFORMATION: facial swelling pain abscess. TECHNIQUE: All CT scans at this location are performed using CT dose reduction for ALARA by means of automated e xposure control. COMPARISON: None available. FINDINGS: SOFT TISSUE FACE: There is a large, multiloculated abscess along the buccal surface of the posterior body of the mandible extending up along the mandibular ramus. This measures about 1.4 x 2.7 cm in tra nsverse dimension by 3 cm in superior-inferior dimension. There is adjacent periodontal disease. This is likely an odontogenic infection. There is extensive cellulitic change in the adjacent cheek. Ther e is inflammatory change in the adjacent right masseter muscle which appears to be enlarged. Reactive level 1B lymphadenopathy is noted. Parotid and submandibular salivary glands have an unremarkable appearance. Abnormalities are seen on evaluation of the floor the mouth. Tongue has an unremarkable appearance. FACIAL BONES: Extensive periodontal disease is noted along the inferior alveolar ridge and superior a lveolar ridge bilaterally. There is no indication of fracture or other osseous abnormality. PARANASAL SINUSES: Paranasal sinuses are free from inflammatory mucosal disease. NASAL CAVITY: No abnormality. ORBITS: No significant abnormality. VISUALIZED INTRACRANIAL STRUCTURES: No significant abnormality. IMPRESSION: 1. Large multiloculated abscess along the buccal surface of the right mandible adjacent to the post erior body and mandibular ramus. There is extensive associated cellulitis. Given the appearance of ex tensive periodontal disease this is likely odontogenic in origin. Contrast dose report: Omnipaque 300: 100 mL administered intravenously. Signer Name: Jimy Murry MD Signed: 02/09/2019 7:22 PM Workstation Name: [id number] / ?[id number]
[2019-02-09] MEDS ORDERED: SODIUM CHLORIDE 0.9% 1000 ML 1,000 ML IV ONE (19:37)
[2019-02-09] MEDS ORDERED: metroNIDAZOLE/NS 500 MG/100 ML 500 MG/100 ML BAG IV ONE (19:37)
[2019-02-09 23:07] VITALS: BP 119/80
== END 2019-02-09 21:35 | disposition short-term general hospital (02) ==
LOC: ED 17:22
DX: A41.9 Sepsis, unspecified organism (principal); L02.01 Cutaneous abscess of face; F17.200 Nicotine dependence, unspecified, uncomplicated; G89.29 Other chronic pain; M25.561 Pain in right knee; M19.90 Unspecified osteoarthritis, unspecified site; Z79.899 Other long term (current) drug therapy
CPT/HCPCS: 36415; 70487; 71045; 80053; 82140; 82550; 82805; 85007; 85025; 85610; 87040; 93005; 93010; 96365; 96367; 96375; 99291; J1100; J7030; Q9967; 80320; G0480; J2060

== ENCOUNTER 2020-10-20 10:47 | Outpatient (CLI) | payer OTHER ==
--- NOTE | 2020-10-20 12:57 | XRay Report ---
PELVIS HISTORY: Pelvic pain. COMPARISON: None. TECHNIQUE: AP radiograph(s) of the pelvis obtained. FINDINGS: Bones: No fracture or dislocation. Joint spaces: Maintained. Soft Tissues: No significant abnormality. Additional findings: None. IMPRESSION: 1. No acute abnormality. No findings to explain patient's reported pain. Signer Name: Jaquan aXvier MD Signed: 10/20/2020 12:53 PM Workstation Name: [id number]
--- NOTE | 2020-10-20 12:59 | XRay Report ---
CERVICAL SPINE HISTORY: Pain. COMPARISON: None. TECHNIQUE: 3 view(s) of the cervical spine obtained. FINDINGS: Vertebrae: Straightening of the cervical spine. No fracture or vertebral body subluxation. Disc Spaces:No significant abnormality. Facet Joints:No significant abnormality. Prevertebral Soft Tissues:No significant abnormality. Additional findings: None. IMPRESSION: No acute osseous injury or significant degenerative change. There is straightening of the cervical spine which may be related to patient positioning or muscle sp asm. Signer Name: Jaquan Xavier MD Signed: 10/20/2020 12:55 PM Workstation Name: [id number]
== END 2020-10-20 10:48 | disposition home or self-care (01) ==
LOC: XRAY 10:47
PROVIDERS: ATTEND Internal Medicine
DX: R10.2 Pelvic and perineal pain (principal); M17.10 Unilateral primary osteoarthritis, unspecified knee; M19.041 Primary osteoarthritis, right hand; M54.2 Cervicalgia
CPT/HCPCS: 72040; 72170

== ENCOUNTER 2020-10-20 12:06 | Emergency (ER) | payer MEDICAID, OTHER ==
--- NOTE | 2020-10-20 13:13 | Event Note ---
ED Screening Note Date of service: 10/20/20 Time: 13:12 ED Screening Note: Pt is vague historian. He states he came in because he has been having nose bleeds off an on x 2 mths and also upper abd pain x 8 mths. Pmhx sig for ETOH abuse and tobacco use. This initial assessment/diagnostic orders/clinical plan/treatment(s) is/are subject to change based on patients health status, clinical progression and re- assessment by fellow clinical providers in the ED. Further treatment and workup at subsequent clinical providers discretion. Patient/guardian urged not to elope from the ED as their condition may be serious if not clinically assessed and managed. Initial orders include:
[2020-10-20 15:23] LABS: Hemoglobin 11.1 gm/dl (11.8-15.2); Mean Corpuscular HGB Conc 33 % (32-34); Mean Corpuscular Volume 73 fl (84-94); Platelet Count 263 K/mm3 (140-440); Red Blood Count 4.69 M/mm3 (3.65-5.03); Red Cell Distribution Width 19.7 % (13.2-15.2)
[2020-10-20 15:30] LABS: Alanine Aminotransferase 42 units/L (7-56); Albumin 4.2 g/dL (3.9-5); BUN/Creatinine Ratio 10; Blood Urea Nitrogen 8 mg/dL (9-20); Calcium 9.2 mg/dL (8.4-10.2); Hemolysis Index 2
[2020-10-20 17:00] LABS: Total Cells Counted 100
[2020-10-20 17:01] LABS: Anisocytosis 1+; Hypochromasia 2+; Platelet Estimate Consistent w Auto; Poikilocytosis 1+; Target Cells 1+
[2020-10-20 17:48] LABS: Bilirubin,Urine NEG (Negative); Blood,Urine NEG (Negative); Color,Urine Yellow (Yellow); Mucus,Urine FEW /HPF; Protein,Urine <15 mg/dL mg/dL (Negative)
[2020-10-20] MEDS ORDERED: ONDANSETRON 4 MG/2 ML INJ IV STA (17:48)
[2020-10-20] MEDS ORDERED: SODIUM CHLORIDE 0.9% 1000 ML 1,000 ML IV ONE (17:48)
[2020-10-20] MEDS ORDERED: LORazepam 2 MG/ML VIAL IV ONE (17:49)
[2020-10-20 17:55] LABS: Amphetamine Screen,Urine Negative; Benzodiazepines Screen,Urine Negative; Cannabinoid Screen,Urine Negative; Cocaine Screen,Urine Negative; Methadone Screen,Urine Negative; Opiate Screen,Urine Negative
--- NOTE | 2020-10-20 18:03 | Emergency Department Report ---
ED Abdominal Pain HPI - General Chief Complaint: Abdominal Pain Stated Complaint: NOSE BLEED/ABDOMINAL PAIN PUI?: No Time Seen by Provider: 10/20/20 17:13 Source: patient Mode of arrival: Ambulatory Limitations: No Limitations - History of Present Illness Initial Comments: 59-year-old -[place] male with a past medical history of EtOH abuse/dependency presents emerged department complaining of developing abdominal pain last night associated with a few episodes of vomiting. States his last drink was was last night as well. He has a baseline of tremors of an unknown etiology as well. He also has been having to tooth 3 months of random epistaxis which is painless and spontaneous resolved with pressure. Reports no headache, no blurred vision no blood thinning conditions or medications or traumatic injuries. MD Complaint: abdominal pain -: Gradual Location: diffuse, LUQ, RUQ, epigastric Radiation: none, LUQ, RUQ Migration to: no migration, LUQ, RUQ, epigastric Severity: mild, moderate Severity scale (0 -10): 5 Consistency: constant Improves With: nothing Worsens With: nothing Associated Symptoms: denies other symptoms, nausea, vomiting, other. denies: constipation, dysuria, hematemesis, hematochezia, melena, hematuria, anorexia, syncope - Related Data Previous Rx's Medication Instructions Recorded Last Taken Type Ibuprofen [Motrin 600 MG tab] 600 mg PO Q8H PRN #30 tablet 08/18/17 Unknown Rx Albuterol Sulfate [Proair 90 mcg IH Q4HR PRN #2 aer.pow.ba 06/30/18 Unknown Rx Respiclick] Fluticasone [Flonase] 1 spray NS QDAY #1 bottle 06/30/18 Unknown Rx Multivitamin [Multiple Vitamins] 1 each PO QDAY #30 tablet 06/30/18 Unknown Rx Oxymetazoline 0.05% [Vicks Sinex] 1 spray NS BID PRN #1 bottle 06/30/18 Unknown Rx Folic Acid [Folvite] 1 mg PO QDAY #30 tablet 10/24/18 Unknown Rx Nicotine [Habitrol] 21 mg TD QDAY #30 patch 10/24/18 Unknown Rx Thiamine [Vitamin B-1] 100 mg PO QDAY #30 tablet 10/24/18 Unknown Rx chlordiazePOXIDE [Librium] 25 mg PO TID #3 capsule 10/24/18 Unknown Rx Ondansetron [Zofran Odt] 4 mg PO Q8HR #14 tab.rapdis 10/20/20 Unknown Rx Allergies Allergy/AdvReac Type Severity Reaction Status Date / Time No Known Allergies Allergy Verified 10/20/20 18:50 ED Review of Systems ROS: Stated complaint: NOSE BLEED/ABDOMINAL PAIN Other details as noted in HPI Comment: All other systems reviewed and negative ED Past Medical Hx - Past Medical History Previous Medical History?: Yes Hx Arthritis: Yes Hx Seizures: Yes Additional medical history: Chronic Right Knee Pain - Surgical History Past Surgical History?: Yes Additional Surgical History: Hand - Social History Smoking Status: Current Every Day Smoker Substance Use Type: Alcohol - Medications Home Medications: Home Medications Medication Instructions Recorded Confirmed Last Taken Type Ibuprofen [Motrin 600 MG tab] 600 mg PO Q8H PRN #30 tablet 08/18/17 10/21/18 Unknown Rx Albuterol Sulfate [Proair 90 mcg IH Q4HR PRN #2 aer.pow.ba 06/30/18 10/21/18 Unk nown Rx Respiclick] Fluticasone [Flonase] 1 spray NS QDAY #1 bottle 06/30/18 10/21/18 Unknown Rx Multivitamin [Multiple Vitamins] 1 each PO QDAY #30 tablet 06/30/18 10/21/18 Unknown Rx Oxymetazoline 0.05% [Vicks Sinex] 1 spray NS BID PRN #1 bottle 06/30/18 10/21/18 Unknown Rx Folic Acid [Folvite] 1 mg PO QDAY #30 tablet 10/24/18 Unknown Rx Nicotine [Habitrol] 21 mg TD QDAY #30 patch 10/24/18 Unknown Rx Thiamine [Vitamin B-1] 100 mg PO QDAY #30 tablet 10/24/18 Unknown Rx chlordiazePOXIDE [Librium] 25 mg PO TID #3 capsule 10/24/18 Unknown Rx Ondansetron [Zofran Odt] 4 mg PO Q8HR #14 tab.rapdis 10/20/20 Unknown Rx ED Physical Exam - General Limitations: No Limitations General appearance: alert, in no apparent distress - Head Head exam: Present: atraumatic, normocephalic, normal inspection - Eye Eye exam: Present: normal appearance, PERRL, EOMI. Absent: scleral icterus Pupils: Present: normal accommodation - ENT ENT exam: Present: normal exam, mucous membranes moist, TM's normal bilaterally, other (Has epistaxis to the right nare appears to be anteriorly located. No foreign bodies are visualized no septal deviation no tenderness to the maxillary, frontal or ethmoid sinuses.) - Neck Neck exam: Present: normal inspection, full ROM. Absent: tenderness, meningismus - Respiratory Respiratory exam: Present: normal lung sounds bilaterally. Absent: respiratory distress, wheezes, rales, rhonchi, chest wall tenderness, accessory muscle use, decreased breath sounds - Cardiovascular Cardiovascular Exam: Present: regular rate, normal rhythm. Absent: systolic murmur, diastolic murmur, rubs, gallop - GI/Abdominal GI/Abdominal exam: Present: soft, tenderness (To the [place] abdomen with palpation. Bowel sounds are positive. Is global but no Manzanares Medina, no Rovsing, no tenderness McBurney's, no Carlos sign), normal bowel sounds. Absent: distended - Rectal Rectal exam: Present: deferred - Extremities Exam Extremities exam: Present: normal inspection, normal capillary refill - Back Exam Back exam: Present: normal inspection. Absent: tenderness, CVA tenderness (R), CVA tenderness (L) - Neurological Exam Neurological exam: Present: alert, oriented X3, CN II-XII intact - Psychiatric Psychiatric exam: Present: normal affect, normal mood - Skin Skin exam: Present: warm, dry, intact, normal color. Absent: rash ED Course Vital Signs 10/20/20 10/20/20 12:32 18:49 Temperature 97.6 F Pulse Rate 96 H 106 H Respiratory 18 20 Rate Blood Pressure 146/89 153/92 [Right] O2 Sat by Pulse 100 98 Oximetry ED Medical Decision Making - Lab Data Result diagrams: 10/20/20 14:16 10/20/20 14:16 - Medical Decision Making This patient presents with abdominal pain of unclear etiology. Their evaluation has not identified a emergent etiology for the abdominal pain. Specifically, given the very benign exam, normal laboratory studies, and lack of significant risk factors, I have a very low suspicion for appendicitis, ischemic bowel, bowel perforation, or any other life threatening disease. I have discussed with the patient the level of uncertainty with undifferentiated abdominal pain and clearly explained the need to follow-up as noted on the discharge instructions, or return to the Emergency Department immediately if the pain worsens, develops fever, persistent and uncontrollable vomiting, or for any new symptoms or concerns. I discussed with the patient that this presentation today for abdominal pain could represent a significant risk for an acute abdominal pr ocess. Although the tests in the ED were essentially normal, there is still a possibility of a process such as appendicitis, diverticulitis, cholecystitis, ulcer, early bowel obstruction, mesenteric ischemia, kidney stone, or even kidney infection which could subsequently cause disability or . The patient understands that they must return within 24 hours for a recheck or see their physician within 24 hours for re-exam due to the possibility of significant surgical or medical process. Critical care attestation.: If time is entered above; I have spent that time in minutes in the direct care of this critically ill patient, excluding procedure time. ED Disposition Clinical Impression: Alcohol abuse, Alcohol dependence, Tremor, Abdominal pain, Mild epistaxis, Vomiting Disposition: DC-01 TO HOME OR SELFCARE Is pt being admited?: No Does the pt Need Aspirin: No Condition: Stable Instructions: Alcohol Use Disorder, Alcohol Abuse and Dependence Information, Adult, Abdominal Pain, Adult, [id number], Tremor Prescriptions: Ondansetron [Zofran Odt] 4 mg PO Q8HR #14 tab.rapdis Referrals: [facility] [Provider Group] - 3-5 Days [facility], [Primary Care Provider] - 3-5 Days
[2020-10-20] MEDS ORDERED: PHENYLEPHRINE 1% NS ONE (18:54)
[2020-10-21 03:18] VITALS: BP 171/89
== END 2020-10-21 00:30 | disposition home or self-care (01) ==
LOC: ED 12:06
DX: F10.20 Alcohol dependence, uncomplicated (principal); R10.11 Right upper quadrant pain; R10.12 Left upper quadrant pain; R10.13 Epigastric pain; R11.10 Vomiting, unspecified; R04.0 Epistaxis; R25.1 Tremor, unspecified; F17.200 Nicotine dependence, unspecified, uncomplicated; M19.90 Unspecified osteoarthritis, unspecified site; G89.29 Other chronic pain; Z79.899 Other long term (current) drug therapy; Y90.0 Blood alcohol level of less than 20 mg/100 ml
CPT/HCPCS: 36415; 80053; 80307; 81001; 83690; 85007; 85025; 85610; 85730; 96361; 96374; 96375; 99283; J2060; J2405; J7030; 80320; G0480